=== PATIENT | male | born 1995 | race Caucasian/White ===

== ENCOUNTER 2023-06-14 01:53 | Emergency (ER) | payer OTHER, SELFPAY ==
[2023-06-14 01:57] VITALS: BP 173/106; PULSE 88; RESP 16; TEMP 36.9; O2SAT 97; BMI 34.4
--- NOTE | 2023-06-14 02:05 | PC.NURSE ---
Pt states he went to urgent care for an ingrown toenail, pain is now increasing and spreading.
[2023-06-14] MEDS: DOXYCYCLINE MONOHYDRATE 100 MG CAPSULE PO (02:21)
--- NOTE | 2023-06-14 03:40 | ED.GENADUL1 ---
HPI - General Adult General Chief complaint: Extremity Problem, Nontraumatic Stated complaint: LT PAIN TINGLE BIG TOE Time Seen by Provider: 06/14/23 01:59 Source: patient Mode of arrival: walk-in History of Present Illness HPI narrative: 20-year-old male to the emergency Department chief complaint of toe pain. Patient reports he has a known ingrown toenail. He was seen several days ago at an urgent care for this. He was started on Keflex at that time. He reports the redness warmth and swelling have worsened since that time. He reports increasing pain. He was not referred to podiatry at that visit. Related Data Home Medications Medication Instructions Recorded Confirmed cephalexin 500 mg capsule mg 06/14/23 mupirocin 2 % topical ointment topical 06/14/23 Previous Rx's Medication Instructions Recorded doxycycline monohydrate 100 mg 100 mg PO BID 7 days #14 caps 06/14/23 capsule Allergies Allergy/AdvReac Type Severity Reaction Status Date / Time No Known Drug Allergies Allergy Verified 06/14/23 02:01 Review of Systems ROS Status of ROS 10 or more systems reviewed and unremarkable except as noted in history and below PFSH [facility] Social History Smoking status: Never smoker Exam Narrative Exam Narrative: Left Foot Exam: DP and PT pulses are intact. Limited similar color and temperature the contralateral extremity. Sensation is intact over the foot. There is some erythema about the lateral nail fold extending up to the 1st MTP. There is some lymphangitic streaking. Compartments are soft. There is no crepitus. Constitutional Vital Signs, click to edit/add: Last Vital Signs Temp 98.4 F 06/14/23 01:57 Pulse 88 06/14/23 01:57 Resp 16 06/14/23 01:57 BP 173/106 H 06/14/23 01:57 Pulse Ox 97 06/14/23 01:57 Course Vital Signs Vital signs: Vital Signs Temperature 98.4 F 06/14/23 01:57 Pulse Rate 88 06/14/23 01:57 Respiratory Rate 16 06/14/23 01:57 Blood Pressure 173/106 H 06/14/23 01:57 Pulse Oximetry 97 06/14/23 01:57 Temperature 98.4 F 06/14/23 01:57 Pulse Rate 88 06/14/23 01:57 Respiratory Rate 16 06/14/23 01:57 Blood Pressure 173/106 H 06/14/23 01:57 Pulse Oximetry 97 06/14/23 01:57 Medical Decision Making MDM Narrative Medical decision making narrative: 28-year-old male with ingrown toenail with some surrounding cellulitis that he reports has worsened despite being on antibiotics. Vital stable, patient is afebrile. The limb is neurovascularly intact. No evidence of necrotizing soft tissue infection. We'll broaden his coverage including MRSA with doxycycline. He is given a podiatry referral. Return precautions were discussed. All questions were answered. The patient was discharged home. Discharge Plan Discharge Chief Complaint: Extremity Problem, Nontraumatic Clinical Impression: Ingrown left big toenail Patient Disposition: Home, Self-Care Time of Disposition Decision: 02:10 Condition: Good Mode of Transportation: Private Vehicle Prescriptions / Home Meds: New doxycycline monohydrate 100 mg capsule 100 mg PO BID 7 Days Qty: 14 0RF No Action cephalexin 500 mg capsule mupirocin 2 % ointment TOPICAL Print Language: Sami Instructions: Ingrown Nail (ED) Stand Alone Forms: Portal Instructions Referrals: Physician,Non-Staff, [Primary Care Provider] - 1 week Fred Castanon DPM [Physician] - 1 week Discharge Date/Time: 06/14/23 02:26
== END 2023-06-14 02:26 | disposition home or self-care (01) ==
PROVIDERS: Emergency Provider Student in an Organized Health Care Education/Training Program
DX: L60.0 Ingrowing nail (principal); L03.032 Cellulitis of left toe
CPT/HCPCS: 99283

== ENCOUNTER 2023-11-05 22:34 | Emergency (ER) | payer OTHER, SELFPAY ==
[2023-11-05 22:40] VITALS: BP 170/88; PULSE 76; TEMP 37; O2SAT 98; BMI 34.2
--- OUTSIDE RECORDS SUMMARY | 2023-11-05 22:42 | XMS_ITS ---
Patient Summarization (C-CDA 2.1 CCD) Created on: November 05, 2023 HODAN ALEX Clarissa : 1995 Sex: Male Author Organization Sample organization Care Team Providers Care Canvas Marker Name Role Phone REQUEST, DR NONE LISTED Primary Care Unavailjose BUSTILLOS, DR MONTANA Admitting Unavailable TRESSA, DR MONTANA Attending Unavailable JANETC, DR ADRIAN Primary Care Unavailable ARNIE, NOREEN Admitting Unavailable ARNIE, NOREEN Attending Unavailable ARNIE, NOREEN Consulting Unavailable EMIR, KARLO Consulting Unavailable MAISHA, NONE LISTED Primary Care Unavailjose MOHR, DR JEANNE Munguia Admitting Unavailable FANI, DR JEANNE Munguia Attending Unavailable JACKIE ALY Consulting Unavailable Cindy, Vince Consulting Unavailable FANI, DR JEANNE Munguia Admitting Unavailable FANI, DR JEANNE Munguia Attending Unavailable RONALD, DR ADRIAN Primary Care Unavailable FANI, DR JEANNE Munguia Consulting Unavailable TRESSA, DR MONTANA Admitting Unavailable TRESSA, DR MONTANA Attending Unavailable MAISHA, NONE LISTED Primary Care Unavailjose BUSTILLOS, DR MONTANA Consulting Unavailable Marce Callahan Encounters Encounter Date Encounter Type Care Provider Facility Start: 06-11-2023 End: 06-11-2023 ambulatory Marce Callahan Other [facility] [employer] Other Start: 06-11-2023 Office outpatient ne w 20 minutes Marce Callahan [facility] Start: 06-19-2021 End: 06-19-2021 ambulatory NONE LISTED REQUEST Facility: Start: 06-01-2021 ambulatory NONE LISTED REQUEST Facility: Start: 05-25-2021 End: 05-25-[address] RUBÉN BUSTILLOS Facility:[facility] Start: 02-18-2021 End: 02-18-[address] DOCTOR CARDENAS Facility:[facility] Start: 02-15-2021 End: 02-15-[address] JEANNE MOHR Facility: Medications Current Medications Medication Drug Class(es) Dates Sig (Normalized) Sig (Original) cephalexin 500 mg oral capsule (1 source) Cephalosporin Antibacterial Start: 06-11-2023 take 1 capsule by mouth every eight hours Cephalexin 500 MG 1 capsule Orally every 8 hrs for 7 May, Active mupirocin 0.02 mg/mg topical ointment (1 source) RNA Synthetase Inhibitor Antibacterial Start: 06-11-2023 Mupirocin 2 % 1 application Externally Three times a day for 7 days May, Active Payers Date Payer Category Payer Unknown [id number] 2.16.84 [id number] 1995 Unknown [id number] 2.16.84 [id number] 1995 Unknown [id number] 2.16.84 [id number] 1995 Unknown [id number] 2.16.84 [id number] 1995 Unknown [id number] 2.16.84 [id number] 1959 Unknown [id number] Problems Active Problems Problem Classification Problem Date Documented Da te Episodic/Chronic Abdominal pain (4 sources) Epigastric pain; Translations: [EPIGASTRIC PAIN] Onset: 06-19-2021 Episodic Skin and subcutaneous tissue infections (1 source) Cellulitis of unspecified toe Episodic Unclassified (3 sources) CONTACT W/AND (SUSP) EXPOS COVID-19; Translations: [CONTACT W/AND (SUSP) EXPOS COVID-19] Onset: 05-29-2021 Past or Other Problems Problem Classification Problem Date Documented Da te Episodic/Chronic Allergic reactions (1 source) Unspecified contact dermatitis due to other agents; Translations: [UNS CONTACT DERMATITIS OTH AGENTS] Onset: 02-16-2021 Episodic Genitourinary symptoms and ill-defined conditions (4 sources) Dysuria; Translations: [DYSURIA] Onset: 02-15-2021 Episodic Other male genital disorders (4 sources) Left testicular pain; Translations: [LEFT TESTICULAR PAIN] Onset: 02-18-2021 Episodic Other male genital disorders (1 source) Right testicular pain; Translations: [RIGHT TESTICULAR PAIN] Onset: 02-20-2021 Episodic Unclassified (1 source) CONTACT W/AND (SUSP) EXPOS COVID-19; Translations: [CONTACT W/AND (SUSP) EXPOS COVID-19] Onset: 05-25-2021 Results Test Name Value Interpretation Reference Range Facil ity AMYLASEon 06-19-2021 Amylase [Catalytic activity/Vol] 38 U/L Normal 31-110 [facility] Comment on above: Performed By: #### C MP, LIPA, LONDON #### [facility] [address] [place] [address] Dr. Arnie Alvarez CBC AUTO DIFFon 06-19-2021 BASO # 0.0 103/ul Normal 0.0-0.1 [facility] Comment on above: Performed By: #### C BC #### [facility] [address] [place] [address] Dr. Arnie Alvarez Basophils/100 WBC (Bld) 0.3 % Normal 0.2-2.0 Comment on above: Performed By: #### C BC #### [facility] [address] [place] [address] Dr. Arnie Alvarez EO # 0.0 103/ul Normal 0.0-0.7 [facility] Comment on above: Performed By: #### C BC #### [facility] [address] [place] [address] Dr. Arnie Alvarez Eosinophils/100 WBC (Bld) 0.3 % Critically low 0.9-7.0 [facility] Comment on above: Performed By: #### C BC #### [facility] [address] [place] [address] Dr. Arnie Alvarez Erythrocyte distribution width (RBC) [Ratio] 11.9 % Normal 11.0-15.0 [facility] Comment on above: Performed By: #### C BC #### [facility] [address] [place] [address] Dr. Arnie Alvarez Hematocrit (Bld) [Volume fraction] 45.0 % Normal 42.0-54.0 Comment on above: Performed By: #### C BC #### [facility] [address] [place] [address] Dr. Arnie Alvarez Hemoglobin (Bld) [Mass/Vol] 15.4 g/dL Normal 14.0-18.0 Comment on above: Performed By: #### C BC #### [facility] [address] [place] [address] Dr. Arnie Alvarez IG # 0.02 10e3/ul Normal 0.00-0.03 Comment on above: Performed By: #### C BC #### [facility] [address] [place] [address] Dr. Arnie Alvarez IG % 0.3 % Normal 0.0-0.5 Comment on above: Performed By: #### C BC #### [facility] [address] [place] [address] Dr. Arnie Alvarez LYMPH # 1.2 103/ul Normal 1.2-3.8 [facility] Comment on above: Performed By: #### C BC #### [facility] [address] [place] [address] Dr. Arnie Alvarez Lymphocytes/100 WBC (Bld) 16.4 % Critically low 20.5-60.0 Comment on above: Performed By: #### C BC #### [facility] [address] [place] [address] Dr. Arnie Alvarez MANUAL DIFF REQ NO Normal [facility] Comment on above: Performed By: #### C BC #### [facility] [address] [place] [address] Dr. Arnie Alvarez MCH (RBC) [Entitic mass] 28.4 pg Normal 25.9-34.0 [facility] Comment on above: Performed By: #### C BC #### [facility] [address] [place] [address] Dr. Arnie Alvarez MCHC (RBC) [Mass/Vol] 34.2 g/dL Normal 29.9-35.2 [facility] Comment on above: Performed By: #### C BC #### [facility] [address] [place] [address] Dr. Arnie Alvarez MCV (RBC) [Entitic vol] 83.0 fL Normal 80.0-94.0 [facility] Comment on above: Performed By: #### C BC #### [facility] [address] [place] [address] Dr. Arnie Alvarez MONO # 0.4 103/ul Normal 0.3-0.8 [facility] Comment on above: Performed By: #### C BC #### [facility] [address] [place] [address] Dr. Arnie Alvarez Monocytes/100 WBC (Bld) 5.9 % Normal 1.7-12.0 [facility] Comment on above: Performed By: #### C BC #### [facility] [address] [place] [address] Dr. Arnie Alvarez NEUT # 5.4 103/ul Normal 1.4-6.5 [facility] Comment on above: Performed By: #### C BC #### [facility] [address] [place] [address] Dr. Arnie Alvarez Neutrophils/100 WBC (Bld) 76.8 % Critically high 43.0-75.0 Comment on above: Performed By: #### C BC #### [facility] [address] [place] [address] Dr. Arnie Alvarez Platelet mean volume (Bld) [Entitic vol] 10.0 fL Normal 9.5-13.5 [facility] Comment on above: Performed By: #### C BC #### [facility] [address] [place] [address] Dr. Arnie Alavrez PLT 319 103/ul Normal 150-450 [facility] Comment on above: Performed By: #### C BC #### [facility] [address] [place] [address] Dr. Arnie Alvarez RBC 5.42 106/ul Normal 4.70-6.10 [facility] Comment on above: Performed By: #### C BC #### [facility] [address] [place] [address] Dr. Arnie Alvarez WBC 7.0 103/ul Normal 4.0-11.0 [facility] Comment on above: Performed By: #### C BC #### [facility] [address] [place], [place] [address] ABD/PELV W CONon 06-19-[address] ABD/PELV W CON EXAMINATION: CT ABD/PELV W CON HISTORY: UNSPECIFIED ABDOMINAL PAIN COMPARISON: None. TECHNIQUE: CT of the abdomen/pelvis with IV contrast. Additional delayed imaging of the pelvis. Dose reduction techniques were achieved by using automated exposure control and/or adjustment of mA and/or kV according to patient size and/or use of iterative reconstruction technique. FINDINGS: Philosophy Specialist: No pertinent findings, which are not already discussed below. Tubes/lines/drains: None. CHEST: Lungs: Clear. Cardiac and vascular: No cardiomegaly or significant pericardial effusion. ABDOMEN: Liver: Unremarkable. Gallbladder and Biliary Tree: Unremarkable. Spleen: Unremarkable. Pancreas: Unremarkable. Adrenal Glands: Unremarkable. Kidneys, Ureters, Bladder: No concerning renal lesions or masses. No urolithiasis. No hydronephrosis or hydroureterosis. Unremarkable bladder. Gastrointestinal: No mural thickening or inflammatory changes. No dilated loops of small or large bowel. Normal appendix. Reproductive organ(s): Unremarkable. Lymphatic: No concerning retroperitoneal, mesenteric, or inguinal adenopathy. Vessels: Unremarkable. BONES AND SOFT TISSUE: Bones: No acute fracture. No concerning osseous lesions. Soft Tissue: Within normal limits. IMPRESSION: No acute intra-abdominal/pelvi c findings. Electronically authenticated by: VINCE BOWLING Date: 2021-06-19 20:31 Normal [facility] LIPASEon 06-19-2021 Lipase [Catalytic activity/Vol] 98.0 U/L Normal 23.0-300.0 Comment on above: Performed By: #### C MP LIPA, LONDON #### [facility] [address] [place] [address] [address] [address] Arnie Alvarez PROF 14(COMP METB)on 022 Albumin [Mass/Vol] 4.4 g/dL Normal 3.5-5.0 [facility] Comment on above: Performed By: #### C MP LIPA, L[place]ON #### [facility] [address] [place] [address] Dr. Arnie Alvarez Albumin/Globulin [Mass ratio] 1.1 {ratio} Normal Comment on above: Performed By: #### C ELIZABETH LAN, L[place] #### [facility] [address] [place] [address] Dr. Arnie Alvarez ALP [Catalytic activity/Vol] 68 U/L Normal 38-126 Comment on above: Performed By: #### C LEONARDA LANA, L[place] #### [facility] [address] [place] [address] Dr. Arnie Alvarez ALT [Catalytic activity/Vol] 32 U/L Normal 21-72 Comment on above: Performed By: #### C ELIZABETH LAN, L[place]ON #### [facility] [address] [place] [address] Dr. Arnie Alvarez Anion gap [Moles/Vol] 10.9 mmol/L Normal Comment on above: Performed By: #### C LEONARDA LANA, L[place] #### [facility] [address] [place] [address] Dr. Arnie Alvarez AST [Catalytic activity/Vol] 16 U/L Critically low 17-59 Comment on above: Performed By: #### C ELIZABETH LAN, L[place]ON #### [facility] [address] [place] [address] Dr. Arnie Alvarez Bilirubin [Mass/Vol] 1.4 mg/dL Critically high 0.2-1.3 Comment on above: Performed By: #### C LEONARDA LANA, L[place] #### [facility] [address] [place] [address] Dr. Arnie Alvarez Calcium [Mass/Vol] 9.6 mg/dL Normal 8.4-10.2 [facility] Comment on above: Performed By: #### C LEONARDA LANA, LONDON #### [facility] [address] [place] [address] Dr. Arnie Alvarez Chloride [Moles/Vol] 101 mmol/L Normal 98-107 [facility] Comment on above: Performed By: #### C LEONARDA LANA, LONDON #### [facility] [address] [place] [address] [address] rAnie Alvarez CO2 [Moles/Vol] 26.6 mmol/L Normal 22.0-30.0 [facility] Comment on above: Performed By: #### C MP, LIPA, LONDON #### [facility] [address] [place] [address] [address] Arnie Alvarez Creatinine [Mass/Vol] 0.93 mg/dL Normal 0.66-1.25 Comment on above: Performed By: #### C MP, LIPA, LONDON #### [facility] [address] [place] [address] [address] Arnie Alvarez EGFR-AF ALGERIAN >60 Normal >=60 [facility] Comment on above: Performed By: #### C MP, LIPA, LONDON #### [facility] [address] [place] [address] [address] Arnie Alvarez EGFR-NON AF ALGERIAN >60 Normal >=60 Comment on above: Performed By: #### C MP, LIPA, LONDON #### [facility] [address] [place] [address] [address] Arnie Alvarez Globulin (S) [Mass/Vol] 4.0 g/dL Normal Comment on above: Performed By: #### C MP, LIPA, LONDON #### [facility] [address] [place] [address] [address] Arnie Alvarez Glucose [Mass/Vol] 110 mg/dL Critically high 74-106 [facility] Comment on above: Performed By: #### C MP, LIPA, LONDON #### [facility] [address] [address] [address] Arnie Alvarez Potassium [Moles/Vol] 3.5 mmol/L Normal 3.4-5.0 Comment on above: Performed By: #### C MP, LIPA, LONDON #### [facility] [address] [address] [address] Arnie Alvarez Protein [Mass/Vol] 8.4 g/dL Critically high 6.1-8.2 [facility] Comment on above: Performed By: #### C ELIZABETH LAN, LONDON #### [facility] [address] [address] [address] Arnie Alvarez Sodium [Moles/Vol] 135 mmol/L Critically low 137-145 [facility] Comment on above: Performed By: #### C ELIZABETH LAN, LONDNO #### [facility] [address] [place] [address] Dr. Arnie Alvarez Urea nitrogen [Mass/Vol] 11.0 mg/dL Normal 9.0-20.0 Comment on above: Performed By: #### C ELIZABETH LAN, L[place]ON #### [facility] [address] [place] [address] Dr. Arnie Alvarez Urea nitrogen/Creatinine [Mass ratio] 11.8 mg/mg Normal Comment on above: Performed By: #### C ELIZABETH LAN, LONDON #### [facility] [address] [place] [address] Dr. Arnie Alvarez Covid-19 PCR ([facility]on SARS-CoV-2 (COVID-19) RNA VICENTA+probe Ql (Unsp spec) Not detected Normal NOT DETECTED Comment on above: Result Comment: This test is not yet approved or cleared by the [place] FDA. When there are no FDA-approved or cleared tests available, and other criteria are met, FDA can make tests available under an emergency access mechanism called an Emergency Use Authorization (EUA). The EUA for this test is supported by the Diana of Health and Human Service's (HHS's) declaration that circumstances exist to justify the emergency use of in vitro diagnostics for the detection and/or diagnosis of the virus that causes COVID-19. This EUA will remain in effect (meaning this test can be used) for the duration of the COVID-19 declaration justifying emergency of IVDs, unless it is terminated or revoked by FDA (after which the test may no longer be used). When diagnostic testing is negative, the possibility of a false negative should be considered in the context of a patient's recent exposures and the presence of clinical signs and symptoms consistent with SARS-CoV-2. Performed By: #### C VDTBH ####[facility] [id number], [place] [address]ZlDr. Arnie Alvarez CBC AUTO DIFFon 02-18-2021 BASO # 0.0 103/ul Normal 0.0-0.1 Comment on above: Performed By: #### C BC #### [facility] [address] [address] [address] Arnie Alvarez Basophils/100 WBC (Bld) 0.4 % Normal 0.2-2.0 Comment on above: Performed By: #### C BC #### [facility] [address] [place] [address] [address] Arnie Alvarez EO # 0.1 103/ul Normal 0.0-0.7 Comment on above: Performed By: #### C BC #### [facility] [address] [address] [address] Arnie Alvarez Eosinophils/100 WBC (Bld) 0.7 % Critically low 0.9-7.0 Comment on above: Performed By: #### C BC #### [facility] [address] [address] [address] Arnie Alvarez Erythrocyte distribution width (RBC) [Ratio] 11.9 % Normal 11.0-15.0 Comment on above: Performed By: #### C BC #### [facility] [address] [address] [address] Arnie Alvarez Hematocrit (Bld) [Volume fraction] 44.2 % Normal 42.0-54.0 Comment on above: Performed By: #### C BC #### [facility] [address] [address] [address] Arnie Alvarez Hemoglobin (Bld) [Mass/Vol] 15.1 g/dL Normal 14.0-18.0 Comment on above: Performed By: #### C BC #### [facility] [address] [place] [address] [address] Arnie Alvarez IG # 0.02 10e3/ul Normal 0.00-0.03 Comment on above: Performed By: #### C BC #### [facility] [address] [place] [address] Dr. Arnie Alvarez IG % 0.2 % Normal 0.0-0.5 Comment on above: Performed By: #### C BC #### [facility] [address] [place] [address] Dr. Arnie Alvarez LYMPH # 1.6 103/ul Normal 1.2-3.8 Comment on above: Performed By: #### C BC #### [facility] [address] [place] [address] Dr. Arnie Alvarez Lymphocytes/100 WBC (Bld) 18.5 % Critically low 20.5-60.0 Comment on above: Performed By: #### C BC #### [facility] [address] [place] [address] Dr. Arnie Alvarez MANUAL DIFF REQ NO Normal [facility] Comment on above: Performed By: #### C BC #### [facility] [address] [place] [address] Dr. Arnie Alvarez MCH (RBC) [Entitic mass] 28.4 pg Normal 25.9-34.0 Comment on above: Performed By: #### C BC #### [facility] [address] [place] [address] Dr. Arnie Alvarez MCHC (RBC) [Mass/Vol] 34.2 g/dL Normal 29.9-35.2 Comment on above: Performed By: #### C BC #### [facility] [address] [place] [address] Dr. Arnie Alvarez MCV (RBC) [Entitic vol] 83.2 fL Normal 80.0-94.0 Comment on above: Performed By: #### C BC #### [facility] [address] [place] [address] Dr. Arnie Alvarez MONO # 0.5 103/ul Normal 0.3-0.8 Comment on above: Performed By: #### C BC #### [facility] [address] [place] [address] Dr. Arnie Alvarez Monocytes/100 WBC (Bld) 6.2 % Normal 1.7-12.0 Comment on above: Performed By: #### C BC #### [facility] [address] [place] [address] Dr. Arnie Alvarez NEUT # 6.3 103/ul Normal 1.4-6.5 [facility] Comment on above: Performed By: #### C BC #### [facility] [address] [place] [address] Dr. Arnie Alvarez Neutrophils/100 WBC (Bld) 74.0 % Normal 43.0-75.0 Comment on above: Performed By: #### C BC #### [facility] [address] [place] [address] Dr. Arnie Alvarez Platelet mean volume (Bld) [Entitic vol] 10.2 fL Normal 9.5-13.5 [facility] Comment on above: Performed By: #### C BC #### [facility] [address] [place] [address] Dr. Arnie Alvarez PLT 302 103/ul Normal 150-450 [facility] Comment on above: Performed By: #### C BC #### [facility] [address] [place] [address] Dr. Arnie Alvarez RBC 5.31 106/ul Normal 4.70-6.10 [facility] Comment on above: Performed By: #### C BC #### [facility] [address] [place] [address] Dr. Arnie Alvarez WBC 8.5 103/ul Normal 4.0-11.0 [facility] Comment on above: Performed By: #### C BC #### [facility] [address] [place] [address] Dr. Arnie Alvarez CRPon 02-18-2021 CRP [Mass/Vol] mg/L Normal <=1.[address] [facility] Comment on above: Performed By: #### B MP, CRP ####[facility] [id number] [place] [address]Dr. Arnie HENDRICKS URINE PROFILEon 1 Bilirubin Ql (U) Negative Normal NEGATIVE [facility] Comment on above: Performed By: #### Lyn MONTANEZ UMICRO #### [facility] [address] [address] [address] Arnie Alvarez Clarity (U) CLEAR Normal CLEAR Comment on above: Performed By: #### Lyn MONTANEZ UMICRO #### [facility] [address] [address] [address] Arnie Alvarez Color (U) YELLOW Normal YELLOW Comment on above: Performed By: #### YAJAIRA MARTINEZICRO #### [facility] [address] [place] [address] Dr. Arnie BASS A micrscopic examination will be performed if indicated. Normal Comment on above: Performed By: #### YAJAIRA MARTINEZICRO #### [facility] [address] [place] [address] Dr. Arnie Alvarez Glucose Ql (U) Negative Normal NEGATIVE [facility] Comment on above: Performed By: #### Lyn MONTANEZ UMICRO #### [facility] [address] [place] [address] Dr. Arnie Alvarez Hemoglobin Ql (U) TRACE-INTACT Abnormal NEGATIVE [facility] Comment on above: Performed By: #### Lyn MONTANEZ UMICRO #### [facility] [address] [address] [address] Arnie Alvarez Ketones Ql (U) TRACE Abnormal NEGATIVE [facility] Comment on above: Performed By: #### Lyn MONTANEZ UMICRO #### [facility] [address] [place] [address] Dr. Arnie Alvarez LEUKOCYTES Negative Normal NEGATIVE Comment on above: Performed By: #### Lyn MONTANEZ UMICRO #### [facility] [address] [place] [address] Dr. Arnie Alvarez Nitrite Ql (U) Negative Normal NEGATIVE [facility] Comment on above: Performed By: #### Lyn MONTANEZ, UMICRO #### [facility] [address] [place] [address] Dr. Arnie Alvarez pH (U) 6.0 [pH] Normal 5-9 Comment on above: Performed By: #### yLn MONTANEZ, UMICRO #### [facility] [address] [place] [address] Dr. Arnie Alvarez SPEC GRAVITY >=1.030 Abnormal 1.005-<=1.025 [facility] Comment on above: Performed By: #### Lyn MONTANEZ, UMICRO #### [facility] [address] [place] [address] Dr. Arnie Alvarez UA PROTEIN Negative Normal NEGATIVE/ TRACE [facility] Comment on above: Performed By: #### Lyn MONTANEZ UMICRO #### [facility] [address] [place] [address] Dr. rAnie Alvarez UR MICRO IND INDICATED Normal Comment on above: Performed By: #### Lyn MONTANEZ UMICRO #### [facility] [address] [place] [address] Dr. Arnie Alvarez Urobilinogen Qn (U) 0.2 {Dasha'U}/dL Normal 0.2 - 1. 0 Comment on above: Performed By: #### Lyn MONTANEZ, UMICRO #### [facility] [address] [place] [address] Dr. Arnie Alvarez PROF CHEM 8 (BAS METB)on Anion gap [Moles/Vol] 10.5 mmol/L Normal Comment on above: Performed By: #### B MP, CRP #### [facility] [address] [place] [address] Dr. Arnie Alvarez Calcium [Mass/Vol] 9.5 mg/dL Normal 8.4-10.2 [facility] Comment on above: Performed By: #### B MP, CRP #### [facility] [address] [place] [address] Dr. Arnie Alvarez Chloride [Moles/Vol] 102 mmol/L Normal 98-107 [facility] Comment on above: Performed By: #### B MP, CRP #### [facility] [address] [place] [address] Dr. Arnie Alvarez CO2 [Moles/Vol] 28.1 mmol/L Normal 22.0-30.0 [facility] Comment on above: Performed By: #### B MP, CRP #### [facility] [address] [address] [address] Arnie Alvarez Creatinine [Mass/Vol] 1.06 mg/dL Normal 0.66-1.25 [facility] Comment on above: Performed By: #### B MP, CRP #### [facility] [address] [place] [address] Dr. Arnie Alvarez EGFR-AF ALGERIAN >60 Normal >=60 [facility] Comment on above: Performed By: #### B MP, CRP #### [facility] [address] [place] [address] Dr. Arnie Alvarez EGFR-NON AF ALGERIAN >60 Normal >=60 Comment on above: Performed By: #### B MP, CRP #### [facility] [address] [place] [address] Dr. Arnie Alvarez Glucose [Mass/Vol] 105 mg/dL Normal 74-106 [facility] Comment on above: Performed By: #### B MP, CRP #### [facility] [address] [place] [address] Dr. Arnie Alvarez Potassium [Moles/Vol] 3.6 mmol/L Normal 3.4-5.0 [facility] Comment on above: Performed By: #### B MP, CRP #### [facility] [address] [place] [address] Dr. Arnie Alvarez Sodium [Moles/Vol] 137 mmol/L Normal 137-145 [facility] Comment on above: Performed By: #### B MP, CRP #### [facility] [address] [place] [address] Dr. Arnie Alvarez Urea nitrogen [Mass/Vol] 11.0 mg/dL Normal 9.0-20.0 Comment on above: Performed By: #### B MP, CRP #### [facility] [address] [place] [address] Dr. Arnie Alvarez Urea nitrogen/Creatinine [Mass ratio] 10.4 mg/mg Normal [facility] Comment on above: Performed By: #### B MP, CRP #### [facility] [address] [place] [address] Dr. Arnie Alvarez URINE MICROSCOPIC ONLYon BACTERIA TRACE Abnormal NONE SEEN Comment on above: Performed By: #### E RUR, UMICRO #### [facility] [address] [place] [address] Dr. Arnie Alvarez Bacteria identified Cx Nom (U) NOT INDICATED Normal Comment on above: Performed By: #### E RUR, UMICRO #### [facility] [address] [place] [address] Dr. Arnie Alvarez CAST SEEN Abnormal NONE SEEN Comment on above: Performed By: #### E RUR, UMICRO #### [facility] [address] [place] [address] Dr. Arnie Alvarez Crystals LM Nom (Urine sed) NONE SEEN Normal NONE SEEN Comment on above: Performed By: #### E RUR, UMICRO #### [facility] [address] [place] [address] Dr. Arnie Alvarez Epithelial cells LM Ql (Urine sed) FEW Abnormal NONE SEEN /RARE [facility] Comment on above: Performed By: #### E RUR, UMICRO #### [facility] [address] [place] [address] Dr. Arnie Alvarez HYALINE CAST RARE Normal [facility] Comment on above: Performed By: #### E RUR, UMICRO #### [facility] [address] [place] [address] Dr. Arnie Alvarez MUCOUS SMALL Abnormal NONE SEEN [facility] Comment on above: Performed By: #### E RUR, UMICRO #### [facility] [address] [address] [address] Arnie Alvarez RBC 2-5 Abnormal 0-2 Comment on above: Performed By: #### E KATIE MONTANEZ #### [facility] [address] [address] [address] Arnie Alvarez WBC NONE SEEN Normal NONE SEEN [facility] Comment on above: Performed By: #### E KATIE MONTANEZ #### [facility] [id number] Arnie Alvarez US SCROTUM W VASCULAR ORGANo n 02-18-2021 US SCROTUM W VASCULAR ORGAN EXAM: US SCROTUM W VASCULAR ORGAN HISTORY: Intermittent torsion of testis COMPARISON: None. TECHNIQUE: Esquivel-scale and color Doppler images as well as spectral analysis of the bilateral testes were obtained in the axial and longitudinal planes using real time ultrasound. FINDINGS: Right: The testicle is normal in size, shape, and echotexture. The testis measures 4.8 x 2.6 x 3.1 cm with normal Doppler flow. No masses are present. The epididymis also demonstrates normal echotexture. There is no hydrocele. Left: The testicle is normal in size, shape, and echotexture. The testis measures 4.6 x 2.2 x 2.7 cm with normal Doppler flow. No masses are present. The epididymis also demonstrates normal echotexture. There is no hydrocele. There is a possible left-sided varicocele. IMPRESSION: 1. Possible left-sided varicocele. Otherwise, unremarkable scrotal ultrasound examination. Electronically authenticated by: Tim FIELD Date: 2021-02-18 04:16 Normal [facility] ER URINE PROFILEon 1 Bilirubin Ql (U) Negative Normal NEGATIVE [facility] Comment on above: Performed By: #### E RUR ####[facility] [address] [address]Dr. Arnie Alvarez Clarity (U) CLEAR Normal CLEAR Comment on above: Performed By: #### E RUR ####[facility] [address] [id number]. Arnie Alvarez Color (U) LT. YELLOW Normal YELLOW Comment on above: Performed By: #### E RUR ####[facility] [address] [address]Dr. Catrachitadawn BASS A micrscopic examination will be performed if indicated. Normal [facility] Comment on above: Performed By: #### E RUR ####[facility] [address] [address]Dr. Arnie Alvarez Glucose Ql (U) Negative Normal NEGATIVE [facility] Comment on above: Performed By: #### E RUR ####[facility] [address] [address]Dr. Arnie Antonio Hemoglobin Ql (U) Negative Normal NEGATIVE [facility] Comment on above: Performed By: #### E RUR ####[facility] [address] [place], [place] [address]Dr. Catrachitadawn Antonio Ketones Ql (U) Negative Normal NEGATIVE [facility] Comment on above: Performed By: #### E RUR ####[facility] [address] [place], [place] [address]Dr. Arnie Alvarez LEUKOCYTES Negative Normal NEGATIVE Comment on above: Performed By: #### E RUR ####[facility] [address] [place], [place] [address]Dr. Arnie Alvarez Nitrite Ql (U) Negative Normal NEGATIVE [facility] Comment on above: Performed By: #### E RUR ####[facility] [address] [place], [place] [address]Dr. Arnie Antonio pH (U) 6.0 [pH] Normal 5-9 [facility] Comment on above: Performed By: #### E RUR ####[facility] [address] [place], [place] [address]Dr. Arnie Alvarez SPEC GRAVITY <=1.005 Abnormal 1.005-<=1.025 [facility] Comment on above: Performed By: #### E RUR ####[facility] [address] [place], [place] [address]Dr. Arnie Alvarez UA PROTEIN Negative Normal NEGATIVE/ TRACE [facility] Comment on above: Performed By: #### E RUR ####[facility] [address] [place], [place] [address]Im. Arnie Alvarez UR MICRO IND NOT INDICATED Normal [facility] Comment on above: Performed By: #### E RUR ####[facility] [address] [place], [place] [address]Jf. Arnie Alvarez Urobilinogen Qn (U) 0.2 {Dasha'U}/dL Normal 0.2 - 1. 0 [facility] Comment on above: Performed By: #### E RUR ####[facility] [address] [place], [place] [address]Qp. Arnie Alvarez Social History Date Type Detail Facility Sex Assigned At [facility] Other Vital Signs Date Time Vital Sign Value Performing Clinician Facility 06-11-2023 17:55-0500 Body height 185.42 cm Marce Callahan Other [facility] Other 06-11-2023 17:55-0500 Body mass index (BMI) [Ratio] 34.3 kg/m2 Marce Callahan Other [facility] Other 06-11-2023 17:55-0500 Body temperature 98 [degF] Marce Callahan Other [facility] Other 06-11-2023 17:55-0500 Body weight 117.94 kg Marce Callahan Other [facility] Other 06-11-2023 17:55-0500 Respiratory rate 16 /min Marce Callahan Other [facility] Other 06-11-2023 17:55-0500 SaO2% (BldA) [Mass fraction] 99 % aMrce Callahan Other [facility] Other Evaluation note 06-11-2023 Note Date & Type Note Facility 06-11-2023 Evaluation note Encounter Date Diagnosis Assessment Notes May, Paronychia of great toe (ICD-10 - L03.039) Discussed diagnosis with patient. No I&D performed today. Instructed patient to take medications as prescribed, take with food and full glass of water, complete entire course even if feeling better. Keep area clean and dry. Encouraged warm Epsom salt soaks of finger and warm compress. Keep skin and nail moisturized, use rx of mupirocin ointment as directed. May use Tylenol or Motrin as needed for discomfort. Follow up with PCP in 3-4 days. Immediate eval if area increases in swelling, redness, warmth, red streaking, purulent drainage, or any other new or concerning symptoms. Patient verbalizes understanding and is agreeable at this time [facility] Other Summary Purpose Family History No Family History Records Found Advance Directives No Advanced Directives Records Found Additional Source Comments (unrecognized sect ion and content) No Status Records Found INFORMATION SOURCE (unrecogn ized section and content) DATE CREATED AUTHOR 06/21/2021 [facility] REASON FOR VISIT (unrecogniz ed section and content) INFECTED LEFT BIG TOE FOR RECORDS PERTAINING TO PATIENTS WHO ARE OR HAVE BEEN ENROLLED IN A CHEMICAL DEPENDENCY/SUBSTANCEABUSE PROGRAM, SOME INFORMATION MAY BE OMITTED. This clinical summary was aggregated from multiple sources. Caution should be exercised in using it in the provision of clinical care. This summary normalizes information from multiple sources, and as a consequence, information in this document may materially change the coding, format and clinical context of patient data. In addition, data may be omitted in some cases. CLINICAL DECISIONS SHOULD BE BASED ON THE PRIMARY CLINICAL RECORDS. [facility]. provides no warranty or guarantee of the accuracy or completeness of information in this document.
[2023-11-05 22:44] VITALS: BP 157/96
--- NOTE | 2023-11-05 22:51 | ED_ITS ---
HPI - Extremity Problem General Chief complaint: Extremity Problem, Nontraumatic Stated complaint: Tingling/Numbness in Left Hand Time Seen by Provider: 11/05/23 22:49 Source: patient Mode of arrival: walk-in History of Present Illness HPI Narrative: presents complaining of tingling of his left 4th and 5th fingers for past couple of days. Describes working on a computer and always resting on his elbow. no weakness of his arm or injury otherwise. No neck pain. Related Data Home Medications ?Medication ?Instructions ?Recorded ?Confirmed No Known Home Medications 11/05/23 11/05/23 Allergies Allergy/AdvReac Type Severity Reaction Status Date / Time No Known Drug Allergies Allergy Verified 11/05/23 22:43 Review of Systems ROS Status of ROS 10 or more systems reviewed and unremark able except as noted in history and below [facility] Social History Smoking status: Never smoker Exam Constitutional Vital Signs, click to edit/add: Last Vital Signs Temp 98.6 F 11/05/23 22:40 Pulse 76 11/05/23 22:40 Resp 16 11/05/23 22:40 BP 157/96 H 11/05/23 22:44 Pulse Ox 98 11/05/23 22:40 O2 Del Method Room Air 11/05/23 22:40 Common normals: no apparent distress, average body habitus, oriented x3, no limitations, healthy appearing, alert and well nourished [facility] Common normals: normocephalic and head/scalp atraumatic Eye Common normals: PERRL, EOMs intact bilaterally and conjunctivae normal Respiratory Common normals: normal respiratory effort, no retractions, no use of accessory muscles and clear to auscultation bilaterally Cardio Common normals: regular rate, regular rhythm, S1 normal heart sound and S2 normal heart sound Extremity Common normals: normal to inspection and full ROM Neuro Common normals: oriented x3, CN's II-XII intact bilaterally, moves all extremities and no focal motor deficits Psych Appearance: grossly normal Course Vital Signs Vital signs: Vital Signs Temperature 98.6 F 11/05/23 22:40 Pulse Rate 76 11/05/23 22:40 Respiratory Rate 16 11/05/23 22:40 Blood Pressure 170/88 H 11/05/23 22:40 Pulse Oximetry 98 11/05/23 22:40 Oxygen Delivery Method Room Air 11/05/23 22:40 Temperature 98.6 F 11/05/23 22:40 Pulse Rate 76 11/05/23 22:40 Respiratory Rate 16 11/05/23 22:40 Blood Pressure 157/96 H 11/05/23 22:44 Pulse Oximetry 98 11/05/23 22:40 Oxygen Delivery Method Room Air 11/05/23 22:40 MDM - Extremity (Nontraumatic) MDM Narrative Medical decision making narrative: patient presents complaining of symptoms of left ulnar neuropathy for past couple of days. Describes often resting against his elbow while working on his computer. No injury. Normal neuro exam. 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
== END 2023-11-05 23:00 | disposition home or self-care (01) ==
PROVIDERS: Emergency Provider Internal Medicine
DX: G56.22 Lesion of ulnar nerve, left upper limb (principal)
CPT/HCPCS: 99284

== ENCOUNTER 2024-05-01 14:05 | Emergency (ER) | payer OTHER, SELFPAY ==
[2024-05-01 14:08] VITALS: BP 170/94; PULSE 92; TEMP 36.9; O2SAT 98; BMI 33.2
--- NOTE | 2024-05-01 14:16 | US_ITS ---
[address] [address] Patient Name: ALEX PETTIT MRN: [id number] date: 1995 Sex: M Assigned Patient Location: ER Current Patient Location: ER Accession/Order Number: [id number] Exam Date: 05/01/2024 14:59 Report Date: 05/01/2024 15:50 At the request of: ORIN DOBSON Procedure: US right upper quadrant EXAM: US right upper quadrant HISTORY: Abdominal pain COMPARISON: None. TECHNIQUE: Grayscale, color and Doppler FINDINGS: The liver is normal in size, contour and echotexture. No focal hepatic mass. Hepatopedal flow in the main portal vein with velocity of 19 cm/s. The pancreas is poorly visualized due to bowel gas The gallbladder is normal in size. The wall measures 2.5 mm. Negative sonographic Michele sign. Common bile duct measures 5.3 mm, normal. The right kidney is normal measuring 11.0 x 5.8 x 5.6 cm No ascites US/US right upper quadrant IMPRESSION: No acute abnormality Electronically authenticated by: SUSAN DE LA ROSA Date: 05/01/2024 15:50
--- NOTE | 2024-05-01 14:18 | ED.ABDPAIN1 ---
HPI - Abdominal Pain General Chief Complaint: Abdominal Pain Stated Complaint: ABDOMINAL PAIN Time Seen by Provider: 05/01/24 14:11 Source: patient Mode of arrival: walk-in History of Present Illness HPI narrative: Patient is a 29-year-old male who presents to the emergency department for evaluation of right upper quadrant abdominal pain that has been present for the last several days. He states last week he had a stomach bug . He states he had diarrhea, his girlfriend was also sick. He states after the diarrhea subsided he developed pain in the right upper quadrant. He states he feels it deep in the abdomen, he does not have pain with palpation. He has not had any persistent vomiting, diarrhea. He has not had any fevers, cough or congestion. No medications taken prior to arrival. He states he has been urinating without difficulty. He denies flank or back pain. He denies any previous abdominal surgeries. Related Data Previous Rx's ?Medication ?Instructions ?Recorded hyoscyamine sulfate 0.125 mg 0.125 mg PO Q6H PRN abdominal pain 05/01/24 tablet (Levsin) #12 tabs ondansetron 4 mg disintegrating 4 mg PO Q6H PRN nausea and 05/01/24 tablet vomiting #12 tabs pantoprazole 40 mg tablet,delayed 40 mg PO DAILY #7 tabs 05/01/24 release (Protonix) Allergies Allergy/AdvReac Type Severity Reaction Status Date / Time No Known Drug Allergies Allergy Verified 11/05/23 22:43 Review of Systems ROS Constitutional Denies: fever or chills Ears, nose, mouth, and throat Denies: throat pain or nasal congestion Cardiovascular Denies: chest pain Respiratory Denies: shortness of breath Gastrointestinal Reports: abdominal pain; Denies: nausea, vomiting or diarrhea Musculoskeletal Denies: back pain Integumentary/Breast Denies: rash Neurological Denies: numbness in extremities or weakness in extremities Hematologic/Lymphatic Denies: easy bruising or easy bleeding PFSH PFSH Social History Smoking status: Never smoker Little interest or pleasure in doing things: not at all Feeling down, depressed, or hopeless: not at all Exam Narrative Exam Narrative: Gen.: Awake, alert, in no distress Head: Normocephalic, atraumatic ENT: Moist mucous membranes Respiratory: No respiratory distress Gastrointestinal: Abdomen is soft, nondistended and nontender to palpation; no guarding or rebound Extremities: Moves extremities equally Psych: Normal mood and affect Neuro: No focal neuro deficit Skin: Warm, dry, intact Constitutional Vital Signs, click to edit/add: Last Vital Signs Temp 98.5 F 05/01/24 14:08 Pulse 92 H 05/01/24 14:08 Resp 18 05/01/24 14:08 BP 154/83 H 05/01/24 15:43 Pulse Ox 98 05/01/24 14:08 O2 Del Method Room Air 05/01/24 14:08 Course Vital Signs Vital signs: Vital Signs Temperature 98.5 F 05/01/24 14:08 Pulse Rate 92 H 05/01/24 14:08 Respiratory Rate 18 05/01/24 14:08 Blood Pressure 170/94 H 05/01/24 14:08 Pulse Oximetry 98 05/01/24 14:08 Oxygen Delivery Method Room Air 05/01/24 14:08 Temperature 98.5 F 05/01/24 14:08 Pulse Rate 92 H 05/01/24 14:08 Respiratory Rate 18 05/01/24 14:08 Blood Pressure 154/83 H 05/01/24 15:43 Pulse Oximetry 98 05/01/24 14:08 Oxygen Delivery Method Room Air 05/01/24 14:08 MDM - Abdominal Pain MDM Narrative Medical decision making narrative: Laboratory studies reviewed and noted within normal limits. GI cocktail given with improvement. Ultrasound of the right upper quadrant with no evidence of acute abnormality. Patient discharged home with Zofran, Protonix, Levsin. Follow-up PCP and return to the ER if symptoms change or worsen. Abdomen is soft and benign at discharge SUPERVISED APC VISIT, PHYSICIAN ATTESTATION: Based on the medical record the care appears appropriate. ? Medical Records Attestation: I reviewed the patient's medical records. Lab Data Attestation: I reviewed the patient's lab results. Labs: Lab Results 05/01/24 Range/Units 14:25 WBC 5.9 (4.0-11.0) 10^3/uL RBC 5.47 (4.70-6.10) 10^6/uL Hgb 15.9 (14.0-18.0) g/dL Hct 45.8 (42.0-54.0) % MCV 83.7 (80.0-94.0) fL MCH 29.1 (25.9-34.0) pg MCHC 34.7 (29.9-35.2) g/dL RDW 11.7 (11.0-15.0) % Plt Count 327 (150-450) 10^3/uL MPV 10.1 (9.5-13.5) fL Neut % (Auto) 55.1 (43.0-75.0) % Lymph % (Auto) 33.9 (20.5-60.0) % [place] % (Auto) 8.9 (1.7-12.0) % Eos % (Auto) 1.2 (0.9-7.0) % Baso % (Auto) 0.7 (0.2-2.0) % Neut # (Auto) 3.2 (1.4-6.5) 10^3/uL Lymph # (Auto) 2.0 (1.2-3.8) 10^3/uL [place] # (Auto) 0.5 (0.3-0.8) 10^3/uL Eos # (Auto) 0.1 (0.0-0.7) 10^3/uL Baso # (Auto) 0.0 (0.0-0.1) 10^3/uL Abs Immat Gran (auto) 0.01 (0.00-0.03) 10^3/uL Imm/Tot Granulo (auto) 0.2 (0.0-0.5) % Sodium 141 (136-145) mmol/L Potassium 3.6 (3.5-5.1) mmol/L Chloride 102 (98-107) mmol/L Carbon Dioxide 27.0 (21.0-32.0) mmol/L Anion Gap 15.6 BUN 10.0 (7.0-18.0) mg/dL Creatinine 1.06 (0.70-1.30) mg/dL Est GFR ( Amer) >60 (>=60 mL/min/1.73m^2) Est GFR (Non-Af Amer) >60 (>=60 mL/min/1.73m^2) BUN/Creatinine Ratio 9.4 Glucose 92 (74-106) mg/dL Lactate 1.4 (0.4-2.0) mmol/L Calcium 9.7 (8.5-10.1) mg/dL Total Bilirubin 1.8 H (0.2-1.0) mg/dL AST 20 (15-37) U/L ALT 37 (16-63) U/L Alkaline Phosphatase 71 (46-116) U/L Total Protein 7.9 (6.4-8.2) g/dL Albumin 4.1 (3.4-5.0) g/dL Globulin 3.8 g/dL Albumin/Globulin Ratio 1.1 Lipase 39.0 (16.0-77.0) U/L Urine Color Lt. yellow (YELLOW) Urine Clarity Clear (CLEAR) Urine pH 6.0 (5.0-9.0) Ur Specific [place] <=1.005 A (1.005-1.025) Urine Protein Negative (NEG/TRACE) mg/dL Urine Glucose (UA) Negative (NEGATIVE) mg/dL Urine Ketones Negative (NEGATIVE) mg/dL Urine Occult Blood Negative (NEGATIVE) Urine Nitrite Negative (NEGATIVE) Urine Bilirubin Negative (NEGATIVE) Urine Urobilinogen 0.2 (0.2-1.0) EU/dL Ur Leukocyte Esterase Negative (NEGATIVE) Imaging Data US - abdomen: Attestation: I have reviewed the pertinent imaging results. Radiologist's impression: ITS Impressions Upper Quadrant Ultrasound 05/01/24 14:16 IMPRESSION: No acute abnormality Electronically authenticated by: SUSAN DE LA ROSA Date: 05/01/2024 15:50 Discharge Plan Discharge Chief Complaint: Abdominal Pain Clinical Impression: Abdominal pain Patient Disposition: Home, Self-Care Time of Disposition Decision: 16:00 Condition: Good Prescriptions / Home Meds: New pantoprazole [Protonix] 40 mg tablet,delayed release (DR/EC) 40 mg PO DAILY Qty: 7 0RF hyoscyamine sulfate [Levsin] 0.125 mg tablet 0.125 mg PO Q6H PRN (Reason: abdominal pain) Qty: 12 0RF ondansetron 4 mg tablet,disintegrating 4 mg PO Q6H PRN (Reason: nausea and vomiting) Qty: 12 0RF Print Language: Vietnamese Instructions: Acute Abdominal Pain (ED) Referrals: Physician,Non-Staff, MD [Primary Care Provider] - 1 week
--- OUTSIDE RECORDS SUMMARY | 2024-05-01 14:33 | XMS_ITS | CCD ---
Author Organization [facility] Care Team Providers Care Travel Ticketing Reviewer Name Role Phone REQUEST, DR NONE LISTED Primary Care Unavailjose BUSTILLOS, DR MONTANA Admitting Unavailable TRESSA, DR MONTANA Attending Unavailable RONALD, DR ADRIAN Primary Care Unavailable ARNIE, NOREEN Admitting Unavailable ARNIE, NOREEN Attending Unavailable ARNIE, NOREEN Consulting Unavailable KARLO FIELD Consulting Unavailable REQUEST, NONE LISTED Primary Care Unavailjose MOHR, DR JEANNE Munguia Admitting Unavailable FANI, DR JEANNE Munguia Attending Unavailable JACKIE ALY Consulting Unavailable Vince White Consulting Unavailable FANI, DR JEANNE Munguia Admitting Unavailable FANI, DR JEANNE Munguia Attending Unavailable RONALD, DR ADRIAN Primary Care Unavailable FANI, DR JEANNE Munguia Consulting Unavailable TRESSA, DR MONTANA Admitting Unavailable TRESSA, DR MONTANA Attending Unavailable MAISHA, DR CAPELLAN LISTED Primary Care Unavailjose BUSTILLOS, DR MONTANA Consulting Unavailable Marce Callahan Unavailable Medications Current Medications Medication Drug Class(es) Dates [...] a day for 7 days May, Active Problems Active Problems Problem Classification Problem Date [...] activity/Vol] 38 U/L Normal 31-110 [facility] Comment on above: Performed By: #### C MP, LIPA, [place] #### [facility] [address] [place] [address] Dr. Arnie Alvarez CBC AUTO DIFFon 06-19-2021 BASO # 0.0 103/ul Normal 0.0-0.1 [facility] Comment on above: Performed By: #### C BC #### [facility] [address] [place] [address] Dr. Arnie Alvarez Basophils/100 WBC (Bld) 0.3 % Normal 0.2-2.0 [facility] Comment on above: Performed By: #### C BC #### [facility] [address] [place] [address] Dr. Arnie Alvarez EO # 0.0 103/ul Normal 0.0-0.7 [facility] Comment on above: Performed By: #### C BC #### [facility] [address] [place] [address] Dr. Arnie Alvarez Eosinophils/100 WBC (Bld) 0.3 % Critically low 0.9-7.0 [facility] Comment on above: Performed By: #### C BC #### [facility] [address] [place] [address] Dr. Arnie Alvarez Erythrocyte distribution width (RBC) [Ratio] 11.9 % Normal 11.0-15.0 [facility] Comment on above: Performed By: #### C BC #### [facility] [address] [place] [address] Dr. Arnie Alvarez Hematocrit (Bld) [Volume fraction] 45.0 % Normal 42.0-54.0 [facility] Comment on above: Performed By: #### C BC #### [facility] [address] [place] [address] Dr. Arnie Alvarez Hemoglobin (Bld) [Mass/Vol] 15.4 g/dL Normal 14.0-18.0 [facility] Comment on above: Performed By: #### C BC #### [facility] [address] [place] [address] Dr. Arnie Alvarez IG # 0.02 10e3/ul Normal 0.00-0.03 [facility] Comment on above: Performed By: #### C BC #### [facility] [address] [place] [address] Dr. Arnie Alvarez IG % 0.3 % Normal 0.0-0.5 [facility] Comment on above: Performed By: #### C BC #### [facility] [address] [place] [address] Dr. Arnie Alvarez LYMPH # 1.2 103/ul Normal 1.2-3.8 [facility] Comment on above: Performed By: #### C BC #### [facility] [address] [place] [address] Dr. Arnie Alvarez Lymphocytes/100 WBC (Bld) 16.4 % Critically low 20.5-60.0 [facility] Comment on above: Performed By: #### C BC #### [facility] [address] [place] [address] Dr. Arnie Alvarez MANUAL DIFF REQ NO Normal [facility] Comment on above: Performed By: #### C BC #### [facility] [address] [place] [address] Dr. Arnie Alvarez MCH (RBC) [Entitic mass] 28.4 pg Normal 25.9-34.0 [facility] Comment on above: Performed By: #### C BC #### [facility] [address] [place] [address] Dr. Arnie Alvarez MCHC (RBC) [Mass/Vol] 34.2 g/dL Normal 29.9-35.2 [facility] Comment on above: Performed By: #### C BC #### [facility] [address] [place] [address] Dr. Arnie Alvarez MCV (RBC) [Entitic vol] 83.0 fL Normal 80.0-94.0 [facility] Comment on above: Performed By: #### C BC #### [facility] [address] [place] [address] Dr. Arnie Alvarez MONO # 0.4 103/ul Normal 0.3-0.8 [facility] Comment on above: Performed By: #### C BC #### [facility] [address] [place] [address] Dr. Arnie Alvarez Monocytes/100 WBC (Bld) 5.9 % Normal 1.7-12.0 [facility] Comment on above: Performed By: #### C BC #### [facility] [address] [place] [address] Dr. Arnie Alvarez NEUT # 5.4 103/ul Normal 1.4-6.5 [facility] Comment on above: Performed By: #### C BC #### [facility] [address] [place] [address] Dr. Arnie Alvarez Neutrophils/100 WBC (Bld) 76.8 % Critically high 43.0-75.0 [facility] Comment on above: Performed By: #### C BC #### [facility] [address] [place] [address] Dr. Arnie Alvarez Platelet mean volume (Bld) [Entitic vol] 10.0 fL Normal 9.5-13.5 [facility] Comment on above: Performed By: #### C BC #### [facility] [address] [address] [address] Arnie Alvarez PLT 319 103/ul Normal 150-450 [facility] Comment on above: Performed By: #### C BC #### [facility] [address] [place] [address] Dr. Arnie Alvarez RBC 5.42 106/ul Normal 4.70-6.10 [facility] Comment on above: Performed By: #### C BC #### [facility] [address] [place] [address] Dr. Arnie Alvarez WBC 7.0 103/ul Normal 4.0-11.0 [facility] Comment on above: Performed By: #### C BC #### [facility] [address] [place] [address] ABD/PELV W CONon [...] and/or use of iterative reconstruction technique. FINDINGS: Computed Tomography Technician: No pertinent findings, which are not already [...] intra-abdominal/pelvi c findings. Electronically authenticated by: VINCE WHITE Date: 2021-06-19 20:31 Normal [facility] LIPASEon 06-19-2021 Lipase [Catalytic activity/Vol] 98.0 U/L Normal 23.0-300.0 [facility] Comment on above: Performed By: #### C LEONARDA LANA, [place] #### [facility] [address] [place] [address] Dr. Arnie Alvarez PROF 14(COMP METB)on 022 Albumin [Mass/Vol] 4.4 g/dL Normal 3.5-5.0 [facility] Comment on above: Performed By: #### C EDYTA LIPA, [place] #### [facility] [address] [place] [address] Dr. Arnie Alvarez Albumin/Globulin [Mass ratio] 1.1 {ratio} Normal [facility] Comment on above: Performed By: #### C EDYTA LIPA, [place] #### [facility] [address] [place] [address] Dr. Arnie Alvarez ALP [Catalytic activity/Vol] 68 U/L Normal 38-126 [facility] Comment on above: Performed By: #### C EDYTA LIPA, L[place] #### [facility] [address] [place] [address] Dr. Arnie Alvarez ALT [Catalytic activity/Vol] 32 U/L Normal 21-72 [facility] Comment on above: Performed By: #### C EDYTA LIPA, [place] #### [facility] [address] [place] [address] Dr. Arnie Alvarez Anion gap [Moles/Vol] 10.9 mmol/L Normal [facility] Comment on above: Performed By: #### C EDYTA LIPA, [place] #### [facility] [address] [place] [address] Dr. Arnie Alvarez AST [Catalytic activity/Vol] 16 U/L Critically low 17-59 [facility] Comment on above: Performed By: #### C EDYTA LIPA, L[place] #### [facility] [address] [place] [address] Dr. Arnie Alvarez Bilirubin [Mass/Vol] 1.4 mg/dL Critically high 0.2-1.3 [facility] Comment on above: Performed By: #### C LEONARDA LANA, [place] #### [facility] [address] [address] [address] Arnie Alvarez Calcium [Mass/Vol] 9.6 mg/dL Normal 8.4-10.2 [facility] Comment on above: Performed By: #### C MP, LIPA, LONDON #### [facility] [address] [address] [address] Arnie Alvarez Chloride [Moles/Vol] 101 mmol/L Normal 98-107 [facility] Comment on above: Performed By: #### C MP, LIPA, L[place] #### [facility] [address] [place] [address] Dr. Arnie Alvarez CO2 [Moles/Vol] 26.6 mmol/L Normal 22.0-30.0 [facility] Comment on above: Performed By: #### C MP, LIPA, L[place]ON #### [facility] [address] [place] [address] Dr. Arnie Alvarez Creatinine [Mass/Vol] 0.93 mg/dL Normal 0.66-1.25 [facility] Comment on above: Performed By: #### C MP LIPA, LONDON #### [facility] [address] [place] [address] Dr. Arnie Alvarez EGFR-AF GEORGIAN >60 Normal >=60 [facility] Comment on above: Performed By: #### C MP, LIPA, L[place] #### [facility] [address] [place] [address] Dr. Arnie Alvarez EGFR-NON AF GEORGIAN >60 Normal >=60 [facility] Comment on above: Performed By: #### C MP, LIPA, L[place] #### [facility] [address] [place] [address] Dr. Arnie Alvarez Globulin (S) [Mass/Vol] 4.0 g/dL Normal [facility] Comment on above: Performed By: #### C MP, LIPA, LONDON #### [facility] [address] [place] [address] Dr. Arnie Alvarez Glucose [Mass/Vol] 110 mg/dL Critically high 74-106 [facility] Comment on above: Performed By: #### C LEONARDA LANA, [place] #### [facility] [address] [place] [address] Dr. Arnie Alvarez Potassium [Moles/Vol] 3.5 mmol/L Normal 3.4-5.0 [facility] Comment on above: Performed By: #### C ELIZABETH LAN, [place] #### [facility] [address] [place] [address] Dr. Arnie Alvarez Protein [Mass/Vol] 8.4 g/dL Critically high 6.1-8.2 [facility] Comment on above: Performed By: #### C ELIZABETH LAN, [place] #### [facility] [address] [place] [address] Dr. Arnie Alvarez Sodium [Moles/Vol] 135 mmol/L Critically low 137-145 [facility] Comment on above: Performed By: #### C ELIZABETH LAN, [place] #### [facility] [address] [place] [address] Dr. Arnie Alvarez Urea nitrogen [Mass/Vol] 11.0 mg/dL Normal 9.0-20.0 [facility] Comment on above: Performed By: #### C ELIZABETH LAN, [place] #### [facility] [address] [place] [address] Dr. Arnie Alvarez Urea nitrogen/Creatinine [Mass ratio] 11.8 mg/mg Normal [facility] Comment on above: Performed By: #### C LEONARDA LANA, [place] #### [facility] [address] [place] [address] Dr. Arnie Alvarez Covid-19 PCR (CVDTB)on SARS-CoV-2 (COVID-19) RNA VICENTA+probe Ql (Unsp spec) Not detected Normal NOT DETECTED [facility] Comment on above: Result Comment: This test is not yet approved or cleared by the [place] FDA. When there are no FDA-approved or cleared tests available, and other criteria are met, FDA can make tests available under an emergency access mechanism called an Emergency Use Authorization (EUA). The EUA for this test is supported by the [employer] of Health and Human Service's (HHS's) declaration [...] consistent with SARS-CoV-2. Performed By: #### C VDTB ####[facility] [id number] [address]Dr. Arnie Alvarez CBC AUTO DIFFon 02-18-2021 BASO # 0.0 103/ul Normal 0.0-0.1 [facility] Comment on above: Performed By: #### C BC #### [facility] [address] [place] [address] Dr. Arnie Alvarez Basophils/100 WBC (Bld) 0.4 % Normal 0.2-2.0 [facility] Comment on above: Performed By: #### C BC #### [facility] [address] [place] [address] Dr. Arnie Alvarez EO # 0.1 103/ul Normal 0.0-0.7 [facility] Comment on above: Performed By: #### C BC #### [facility] [address] [place] [address] Dr. Arnie Alvarez Eosinophils/100 WBC (Bld) 0.7 % Critically low 0.9-7.0 [facility] Comment on above: Performed By: #### C BC #### [facility] [address] [place] [address] Dr. Arnie Alvarez Erythrocyte distribution width (RBC) [Ratio] 11.9 % Normal 11.0-15.0 [facility] Comment on above: Performed By: #### C BC #### [facility] [address] [place] [address] Dr. Arnie Alvarez Hematocrit (Bld) [Volume fraction] 44.2 % Normal 42.0-54.0 [facility] Comment on above: Performed By: #### C BC #### [facility] [address] [place] [address] Dr. Arnie Alvarez Hemoglobin (Bld) [Mass/Vol] 15.1 g/dL Normal 14.0-18.0 [facility] Comment on above: Performed By: #### C BC #### [facility] [address] [place] [address] Dr. Arnie Alvarez IG # 0.02 10e3/ul Normal 0.00-0.03 [facility] Comment on above: Performed By: #### C BC #### [facility] [address] [place] [address] Dr. Arnie Alvarez IG % 0.2 % Normal 0.0-0.5 [facility] Comment on above: Performed By: #### C BC #### [facility] [address] [place] [address] Dr. Arnie Alvarez LYMPH # 1.6 103/ul Normal 1.2-3.8 [facility] Comment on above: Performed By: #### C BC #### [facility] [address] [place] [address] Dr. Arnie Alvarez Lymphocytes/100 WBC (Bld) 18.5 % Critically low 20.5-60.0 [facility] Comment on above: Performed By: #### C BC #### [facility] [address] [place] [address] Dr. Arnie Alvarez MANUAL DIFF REQ NO Normal [facility] Comment on above: Performed By: #### C BC #### [facility] [address] [place] [address] Dr. Arnie Alvarez MCH (RBC) [Entitic mass] 28.4 pg Normal 25.9-34.0 [facility] Comment on above: Performed By: #### C BC #### [facility] [address] [place] [address] Dr. Arnie Alvarez MCHC (RBC) [Mass/Vol] 34.2 g/dL Normal 29.9-35.2 [facility] Comment on above: Performed By: #### C BC #### [facility] [address] [address] [address] Arnie Alvarez MCV (RBC) [Entitic vol] 83.2 fL Normal 80.0-94.0 [facility] Comment on above: Performed By: #### C BC #### [facility] [address] [address] [address] Arnie Alvarez MONO # 0.5 103/ul Normal 0.3-0.8 [facility] Comment on above: Performed By: #### C BC #### [facility] [address] [place] [address] Dr. Arnie Alvarez Monocytes/100 WBC (Bld) 6.2 % Normal 1.7-12.0 [facility] Comment on above: Performed By: #### C BC #### [facility] [address] [place] [address] Dr. Arnie Alvarez NEUT # 6.3 103/ul Normal 1.4-6.5 [facility] Comment on above: Performed By: #### C BC #### [facility] [address] [place] [address] Dr. Arnie Alvarez Neutrophils/100 WBC (Bld) 74.0 % Normal 43.0-75.0 [facility] Comment on above: Performed By: #### C BC #### [facility] [address] [place] [address] Dr. Arnie Alvarez Platelet mean volume (Bld) [Entitic vol] 10.2 fL Normal 9.5-13.5 [facility] Comment on above: Performed By: #### C BC #### [facility] [address] [place] [address] Dr. Arnie Alvarez PLT 302 103/ul Normal 150-450 [facility] Comment on above: Performed By: #### C BC #### [facility] [address] [place] [address] Dr. Arnie Alvarez RBC 5.31 106/ul Normal 4.70-6.10 [facility] Comment on above: Performed By: #### C BC #### [facility] [address] [address] [address] Arnie Alvarez WBC 8.5 103/ul Normal 4.0-11.0 [facility] Comment on above: Performed By: #### C BC #### [facility] [address] [address] [address] Arnie Alvarez CRPon 02-18-2021 CRP [Mass/Vol] mg/L Normal <=1.0 [facility] Comment on above: Performed By: #### B MP, CRP ####[facility] [id number] [id number]. Arnie Alvarez ER URINE PROFILEon Bilirubin Ql (U) Negative Normal NEGATIVE [facility] Comment on above: Performed By: #### Lyn MONTANEZ UMICRO #### [facility] [address] [place] [address] Dr. Arnie Alvarez Clarity (U) CLEAR Normal CLEAR [facility] Comment on above: Performed By: #### Lyn MONTANEZ UMICRO #### [facility] [address] [place] [address] Dr. Arnie Alvarez Color (U) YELLOW Normal YELLOW [facility] Comment on above: Performed By: #### Lyn MONTANEZ UMICRO #### [facility] [address] [place] [address] Dr. Arnie JUÁREZMarilee A micrscopic examination will be performed if indicated. Normal [facility] Comment on above: Performed By: #### Lyn MONTANEZ UMICRO #### [facility] [address] [place] [address] Dr. Arnie Alvarez Glucose Ql (U) Negative Normal NEGATIVE [facility] Comment on above: Performed By: #### Lyn MONTANEZ UMICRO #### [facility] [address] [place] [address] Dr. Arnie Alvarez Hemoglobin Ql (U) TRACE-INTACT Abnormal NEGATIVE [facility] Comment on above: Performed By: #### Lyn MONTANEZ UMICRO #### [facility] [address] [place] [address] Dr. Arnie Alvarez Ketones Ql (U) TRACE Abnormal NEGATIVE [facility] Comment on above: Performed By: #### YUSUF MARTINEZRO #### [facility] [address] [place] [address] Dr. Arnie Alvarez LEUKOCYTES Negative Normal NEGATIVE [facility] Comment on above: Performed By: #### YUSUF MARTINEZRO #### [facility] [address] [place] [address] Dr. Arnie Alvarez Nitrite Ql (U) Negative Normal NEGATIVE [facility] Comment on above: Performed By: #### YUSUF MARTINEZRO #### [facility] [address] [place] [address] Dr. Arnie Alvarez pH (U) 6.0 [pH] Normal 5-9 [facility] Comment on above: Performed By: #### YUSUF MARTINEZRO #### [facility] [address] [place] [address] Dr. Arnie Alvarez SPEC GRAVITY >=1.030 Abnormal 1.005-<=1.[address] [facility] Comment on above: Performed By: #### YUSUF MARTINEZRO #### [facility] [address] [place] [address] Dr. Arnie Alvarez UA PROTEIN Negative Normal NEGATIVE/ TRACE [facility] Comment on above: Performed By: #### YUSUF MARTINEZRO #### [facility] [address] [place] [address] Dr. Arnie Alvarez UR MICRO IND INDICATED Normal [facility] Comment on above: Performed By: #### YUSUF MARTINEZRO #### [facility] [address] [place] [address] Dr. Arnie Alvarez Urobilinogen Qn (U) 0.2 {Dasha'U}/dL Normal 0.2 - 1. 0 [facility] Comment on above: Performed By: #### YUSUF MARTINEZRO #### [facility] [address] [place] [address] Dr. Arnie Alvarez PROF CHEM 8 (BAS METB)on Anion gap [Moles/Vol] 10.5 mmol/L Normal [facility] Comment on above: Performed By: #### B MP, CRP #### [facility] [address] [place] [address] Dr. Arnie Alvarez Calcium [Mass/Vol] 9.5 mg/dL Normal 8.4-10.2 [facility] Comment on above: Performed By: #### B MP, CRP #### [facility] [address] [place] [address] Dr. Arnie Alvarez Chloride [Moles/Vol] 102 mmol/L Normal 98-107 [facility] Comment on above: Performed By: #### B MP, CRP #### [facility] [address] [place] [address] Dr. Arnie Alvarez CO2 [Moles/Vol] 28.1 mmol/L Normal 22.0-30.0 [facility] Comment on above: Performed By: #### B MP, CRP #### [facility] [address] [place] [address] Dr. Arnie Alvarez Creatinine [Mass/Vol] 1.06 mg/dL Normal 0.66-1.25 [facility] Comment on above: Performed By: #### B MP, CRP #### [facility] [address] [place] [address] Dr. Arnie Alvarez EGFR-AF GEORGIAN >60 Normal >=60 [facility] Comment on above: Performed By: #### B MP, CRP #### [facility] [address] [place] [address] Dr. Arnie Alvarez EGFR-NON AF GEORGIAN >60 Normal >=60 [facility] Comment on above: Performed By: #### B MP, CRP #### [facility] [address] [place] [address] Dr. Arnie Alvarez Glucose [Mass/Vol] 105 mg/dL Normal 74-106 [facility] Comment on above: Performed By: #### B MP, CRP #### [facility] [address] [place] [address] Dr. Arnie Alvarez Potassium [Moles/Vol] 3.6 mmol/L Normal 3.4-5.0 [facility] Comment on above: Performed By: #### B EDYTA, CRP #### [facility] [address] [address] [address] Arnie Alvarez Sodium [Moles/Vol] 137 mmol/L Normal 137-145 [facility] Comment on above: Performed By: #### B MP, CRP #### [facility] [address] [address] [address] Arnie Alvarez Urea nitrogen [Mass/Vol] 11.0 mg/dL Normal 9.0-20.0 [facility] Comment on above: Performed By: #### B EDYTA, CRP #### [facility] [address] [place] [address] Dr. Arnie Alvarez Urea nitrogen/Creatinine [Mass ratio] 10.4 mg/mg Normal [facility] Comment on above: Performed By: #### B EDYTA, CRP #### [facility] [address] [place] [address] Dr. Arnie Alvarez URINE MICROSCOPIC ONLYon BACTERIA TRACE Abnormal NONE SEEN [facility] Comment on above: Performed By: #### Lyn MONTANEZ UMICRO #### [facility] [address] [place] [address] Dr. Arnie Alvarez Bacteria identified Cx Nom (U) NOT INDICATED Normal [facility] Comment on above: Performed By: #### Lyn MONTANEZ UMICRO #### [facility] [address] [place] [address] Dr. Arnie Alvarez CAST SEEN Abnormal NONE SEEN [facility] Comment on above: Performed By: #### Lyn MONTANEZ UMICRO #### [facility] [address] [place] [address] Dr. Arnie Alvarez Crystals LM Nom (Urine sed) NONE SEEN Normal NONE SEEN [facility] Comment on above: Performed By: #### Lyn MONTANEZ UMICRO #### [facility] [address] [place] [address] Dr. Arnie Alvarez Epithelial cells LM Ql (Urine sed) FEW Abnormal NONE SEEN /RARE [facility] Comment on above: Performed By: #### E RUR, UMICRO #### [facility] [address] [address] [address] Arnie Alvarez HYALINE CAST RARE Normal [facility] Comment on above: Performed By: #### E RUR, UMICRO #### [facility] [address] [address] [address] Arnie Alvarez MUCOUS SMALL Abnormal NONE SEEN [facility] Comment on above: Performed By: #### E RUR, UMICRO #### [facility] [address] [address] [address] Arnie Alvarez RBC 2-5 Abnormal 0-2 [facility] Comment on above: Performed By: #### E RUR, UMICRO #### [facility] [address] [place] [address] Dr. Arnie Alvarez WBC NONE SEEN Normal NONE SEEN [facility] Comment on above: Performed By: #### E RUR, UMICRO #### [facility] [facility] [address] [place] [address] Dr. Arnie Alvarez US SCROTUM W VASCULAR [...] FIELD Date: 2021-02-18 04:16 Normal [facility] ER URINE PROFILEon 1 Bilirubin Ql (U) Negative Normal NEGATIVE The [facility] Comment on above: Performed By: #### E RUR ####[facility] [id number] [place], [place] [address]Dr. Arnie Alvarez Clarity (U) CLEAR Normal CLEAR [facility] Comment on above: Performed By: #### E RUR ####[facility] [address] [place], [place] [address]Dr. Arnie Alvarez Color (U) LT. YELLOW Normal YELLOW [facility] Comment on above: Performed By: #### E RUR ####[facility] [address] [place], [place] [address]Dr. Arnie Alvarez ERUAHD A micrscopic examination will be performed if indicated. Normal [facility] Comment on above: Performed By: #### E RUR ####[facility] Ofcwu[address]xvs[address] [place], [place] [address]Dr. Arine Alvarez Glucose Ql (U) Negative Normal NEGATIVE [facility] Comment on above: Performed By: #### E RUR ####[facility] [address] [place], [place] [address]Dr. Arnie Alvarez Hemoglobin Ql (U) Negative Normal NEGATIVE [facility] Comment on above: Performed By: #### E RUR ####[facility] [address]asx[address] [place], [place] [address]Dr. Arnie Alvarez Ketones Ql (U) Negative Normal NEGATIVE [facility] Comment on above: Performed By: #### E RUR ####[facility] [address]vs[address] [place], [place] [address]Dr. Arnie Alvarez LEUKOCYTES Negative Normal NEGATIVE [facility] Comment on above: Performed By: #### E RUR ####[facility] [address] [place], [place] [address]Dr. Arnie Alvarez Nitrite Ql (U) Negative Normal NEGATIVE [facility] Comment on above: Performed By: #### E RUR ####[facility] Jrsh[address]gvt[address] [place], [place] [address]Dr. Yilan Alvarez pH (U) 6.0 [pH] Normal 5-9 [facility] Comment on above: Performed By: #### E RUR ####[facility] [address] [place] [id number]. Arnie Alvarez SPEC GRAVITY <=1.005 Abnormal 1.005-<=1.025 [facility] Comment on above: Performed By: #### E RUR ####[facility] [address] [place] [address]Dr. Arnie Alvarez UA PROTEIN Negative Normal NEGATIVE/ TRACE [facility] Comment on above: Performed By: #### E RUR ####[facility] [address] [place], [place] [address]Dr. Arnie Alvarez UR MICRO IND NOT INDICATED Normal [facility] Comment on above: Performed By: #### E RUR ####[facility] [address] [place] [address]Dr. Arnie Alvarez Urobilinogen Qn (U) 0.2 {Dasha'U}/dL Normal 0.2 - 1. 0 [facility] Comment on above: Performed By: #### E RUR ####[facility] [address] [place], [place] [address]DrSmitha Alvarez Vital Signs Date Time Vital Sign Value Performing Clinician Facility 06-11-2023 17:55-0500 Body height 185.42 cm Marce Callahan Other [facility] Other 06-11-2023 17:55-0500 Body mass index (BMI) [Ratio] 34.3 kg/m2 Marce Callahan Other [facility] Other 06-11-2023 17:55-0500 Body temperature 98 [degF] Marce Callahan Other [facility] Other 06-11-2023 17:55-0500 Body weight 117.94 kg Marce Callahan Other [facility] Other 06-11-2023 17:55-0500 Respiratory rate 16 /min Marce Callahan Other [facility] Other 06-11-2023 17:55-0500 SaO2% (BldA) [Mass fraction] 99 % Marce Callahan Other [facility] Other Encounters Encounter Date Encounter Type Care Provider Facility Start: 06-11-2023 End: 06-11-2023 ambulatory Marce Callahan Other [facility] Other Start: 06-11-2023 Office outpatient ne w 20 minutes Marce Callahan [facility] Start: 06-19-2021 End: 06-19-2021 ambulatory NONE LISTED REQUEST Facility:[facility] Start: 06-01-2021 ambulatory NONE LISTED REQUEST Facility:[facility] Start: 05-25-2021 End: 05-25-[address] RUBÉN BUSTILLOS Facility:[facility] Start: 02-18-2021 End: 02-18-[address] DOCTOR CARDENAS Facility:[facility] Start: 02-15-2021 End: 02-15-[address] JEANNE MOHR Facility:[facility] Payers Date Payer Category Payer Unknown [id number] [id number] [id number] 1995 Unknown [id number] .[id number] [id number] 1995 Unknown [id number] .16.84 [id number] 1995 Unknown [id number] .16.84 [id number] 1995 Unknown [id number] .16.84 [id number] 1959 Unknown [id number] Social History Date Type Detail Facility Sex Assigned At [facility] Other Evaluation note 06-11-2023 Note Date & [...] understanding and is agreeable at this time [facility] Other Summary Purpose Family History No Family History Records Found Advance Directives No Advanced Directives Records Found Additional Source Comments (unrecognized sect ion and content) No Status Records Found INFORMATION SOURCE (unrecogn ized section and content) DATE CREATED AUTHOR 06/21/2021 [facility] REASON FOR VISIT (unrecogniz ed [...] BE BASED ON THE PRIMARY CLINICAL RECORDS. [employer] [facility]. provides no warranty or guarantee of the accuracy or completeness of information in this document.
[2024-05-01 14:36] LABS: Basophils Percent Auto 0.7 % (0.2-2.0); Eosinophils Absolute Auto 0.1 10^3/uL (0.0-0.7); Eosinophils Percent Auto 1.2 % (0.9-7.0); Hematocrit 45.8 % (42.0-54.0); Hemoglobin 15.9 g/dL (14.0-18.0); Immature Granulocytes Abs Auto 0.01 10^3/uL (0.00-0.03); Immature Granulocytes Pct Auto 0.2 % (0.0-0.5); Lymphocytes Percent Auto 33.9 % (20.5-60.0); Mean Corpuscular HGB Conc 34.7 g/dL (29.9-35.2); Mean Corpuscular Hemoglobin 29.1 pg (25.9-34.0); Mean Corpuscular Volume 83.7 fL (80.0-94.0); Mean Platelet Volume 10.1 fL (9.5-13.5); Monocytes Absolute Auto 0.5 10^3/uL (0.3-0.8); Monocytes Percent Auto 8.9 % (1.7-12.0); Neutrophils Absolute Auto 3.2 10^3/uL (1.4-6.5); Neutrophils Percent Auto 55.1 % (43.0-75.0); Platelet Count 327 10^3/uL (150-450); Red Blood Count 5.47 10^6/uL (4.70-6.10); Red Cell Distribution Width 11.7 % (11.0-15.0); White Blood Count 5.9 10^3/uL (4.0-11.0)
[2024-05-01 14:40] LABS: Bilirubin Urine NEGATIVE (NEGATIVE); Blood Urine NEGATIVE (NEGATIVE); Clarity Urine CLEAR (CLEAR); Color Urine LT. YELLOW (YELLOW); Glucose Urine UA NEGATIVE (NEGATIVE); Ketones Urine NEGATIVE (NEGATIVE); Leukocyte Esterase Urine NEGATIVE (NEGATIVE); Nitrite Urine NEGATIVE (NEGATIVE); Protein Urine NEGATIVE (NEG/TRACE); Specific Gravity Urine <=1.005 (1.005-1.025); Urobilinogen Urine 0.2 EU/dL (0.2-1.0)
[2024-05-01 14:44] LABS: Urine Microscopic Indicated NO
[2024-05-01] MEDS: PANTOPRAZOLE SODIUM 40 MG VIAL IV (14:45)
[2024-05-01] MEDS: lidocaine HCL 15 ML, MAG HYDROX/ALUMINUM HYD/SIMETH 30 ML, HYOSCYAMINE SULFATE 0.25 MG PO (14:45)
[2024-05-01 14:53] LABS: Alanine Aminotransferase 37 U/L (16-63); Albumin Globulin Ratio 1.1; Albumin Level 4.1 g/dL (3.4-5.0); Alkaline Phosphatase 71 U/L (46-116); Anion Gap 15.6; Aspartate Amino Transferase 20 U/L (15-37); BUN Creatinine Ratio 9.4; Bilirubin Total 1.8 mg/dL (0.2-1.0); Calcium 9.7 mg/dL (8.5-10.1); Chloride 102 mmol/L (98-107); Estimated GFR (African America >60 (>=60 mL/min/1.73m^2); Estimated GFR (Non-African Ame >60 (>=60 mL/min/1.73m^2); Globulin 3.8 g/dL; Glucose 92 mg/dL (74-106); Potassium 3.6 mmol/L (3.5-5.1); Sodium 141 mmol/L (136-145); Total Protein 7.9 g/dL (6.4-8.2)
[2024-05-01 14:55] LABS: Lactate/Lactic Acid 1.4 mmol/L (0.4-2.0)
[2024-05-01 15:43] VITALS: BP 154/83
== END 2024-05-01 16:05 | disposition home or self-care (01) ==
PROVIDERS: Physician Assistant; Emergency Provider Emergency Medicine
DX: R10.11 Right upper quadrant pain (principal)
CPT/HCPCS: 36415; 76705; 80053; 81003; 83605; 83690; 85025; 96374; 99285

== ENCOUNTER 2024-09-07 01:37 | Emergency (ER) | payer OTHER, SELFPAY ==
[2024-09-07 01:40] VITALS: BP 155/98; PULSE 88; TEMP 36.9; O2SAT 99; BMI 33.2
--- OUTSIDE RECORDS SUMMARY | 2024-09-07 01:43 | XMS_ITS | CCD ---
Author Organization [facility] Care Team Providers Care Courier Delivery Driver Name Role Phone REQUEST, DR NONE LISTED [...] [Catalytic activity/Vol] 38 U/L Normal 31-110 [facility] Comment on above: Performed By: #### C MP, LIPA, [place] #### [facility] [address] [place] [address] Dr. Arnie Alvarez CBC AUTO DIFFon 06-19-2021 BASO # 0.0 103/ul Normal 0.0-0.1 [facility] Comment on above: Performed By: #### C BC #### [facility] [address] [place] [address] Dr. Arnie Alvarez Basophils/100 WBC (Bld) 0.3 % Normal 0.2-2.0 [facility] Comment on above: Performed By: #### C BC #### [facility] [address] [place] [address] Dr. Arnie Alvarez EO # 0.0 103/ul Normal 0.0-0.7 [facility] Comment on above: Performed By: #### C BC #### [facility] [address] [place] [address] Dr. Arnie Alvarez Eosinophils/100 WBC (Bld) 0.3 % Critically low 0.9-7.0 [facility] Comment on above: Performed By: #### C BC #### [facility] [address] [place] [address] Dr. Arnie Alvarez Erythrocyte distribution width (RBC) [Ratio] 11.9 % Normal 11.0-15.0 [facility] Comment on above: Performed By: #### C BC #### [facility] [address] [place] [address] Dr. Arnie Alvarez Hematocrit (Bld) [Volume fraction] 45.0 % Normal 42.0-54.0 [facility] Comment on above: Performed By: #### C BC #### [facility] [address] [place] [address] Dr. Arnie Alvarez Hemoglobin (Bld) [Mass/Vol] 15.4 g/dL Normal 14.0-18.0 [facility] Comment on above: Performed By: #### C BC #### [facility] [address] [place] [address] Dr. Arnie Alvarez IG # 0.02 10e3/ul Normal 0.00-0.03 [facility] Comment on above: Performed By: #### C BC #### [facility] [address] [place] [address] Dr. Arnie Alvarez IG % 0.3 % Normal 0.0-0.5 [facility] Comment on above: Performed By: #### C BC #### [facility] [address] [place] [address] Dr. Arnie Alvarez LYMPH # 1.2 103/ul Normal 1.2-3.8 [facility] Comment on above: Performed By: #### C BC #### [facility] [address] [place] [address] Dr. Arnie Alvarez Lymphocytes/100 WBC (Bld) 16.4 % Critically low 20.5-60.0 [facility] Comment on above: Performed By: #### C BC #### [facility] [address] [place] [address] Dr. Arnie Alvarez MANUAL DIFF REQ NO Normal [facility] Comment on above: Performed By: #### C BC #### [facility] [address] [place] [address] Dr. Arnie Alvarez MCH (RBC) [Entitic mass] 28.4 pg Normal 25.9-34.0 [facility] Comment on above: Performed By: #### C BC #### [facility] [address] [place] [address] Dr. Arnie Alvarez MCHC (RBC) [Mass/Vol] 34.2 g/dL Normal 29.9-35.2 [facility] Comment on above: Performed By: #### C BC #### [facility] [address] [place] [address] Dr. Arnie Alvarez MCV (RBC) [Entitic vol] 83.0 fL Normal 80.0-94.0 [facility] Comment on above: Performed By: #### C BC #### [facility] [address] [place] [address] Dr. Arnie Alvarez MONO # 0.4 103/ul Normal 0.3-0.8 [facility] Comment on above: Performed By: #### C BC #### [facility] [address] [place] [address] Dr. Arnie Alvarez Monocytes/100 WBC (Bld) 5.9 % Normal 1.7-12.0 [facility] Comment on above: Performed By: #### C BC #### [facility] [address] [place] [address] Dr. Arnie Alvarez NEUT # 5.4 103/ul Normal 1.4-6.5 [facility] Comment on above: Performed By: #### C BC #### [facility] [address] [place] [address] Dr. Arnie Alvarez Neutrophils/100 WBC (Bld) 76.8 % Critically high 43.0-75.0 [facility] Comment on above: Performed By: #### C BC #### [facility] [address] [place] [address] Dr. Arnie Alvarez Platelet mean volume (Bld) [Entitic vol] 10.0 fL Normal 9.5-13.5 [facility] Comment on above: Performed By: #### C BC #### [facility] [address] [address] [address] Arnie Alvarez PLT 319 103/ul Normal 150-450 [facility] Comment on above: Performed By: #### C BC #### [facility] [address] [place] [address] Dr. Arnie Alvarez RBC 5.42 106/ul Normal 4.70-6.10 [facility] Comment on above: Performed By: #### C BC #### [facility] [address] [place] [address] Dr. Arnie Alvarez WBC 7.0 103/ul Normal 4.0-11.0 [facility] Comment on above: Performed By: #### C BC #### [facility] [address] [place] [address] ABD/PELV W CONon [...] and/or use of iterative reconstruction technique. FINDINGS: Reservations Agent: No pertinent findings, which are not already [...] acute intra-abdominal/pelvi c findings. Electronically authenticated by: VINEC WHITE Date: 2021-06-19 20:31 Normal [facility] LIPASEon 06-19-2021 Lipase [Catalytic activity/Vol] 98.0 U/L Normal 23.0-300.0 [facility] Comment on above: Performed By: #### C LEONARDA LANA, L[place] #### [facility] [address] [place] [address] Dr. Arnie Alvarez PROF 14(COMP METB)on 022 Albumin [Mass/Vol] 4.4 g/dL Normal 3.5-5.0 [facility] Comment on above: Performed By: #### C EDYTA LIPA, L[place] #### [facility] [address] [place] [address] Dr. Arnie Alvarez Albumin/Globulin [Mass ratio] 1.1 {ratio} Normal [facility] Comment on above: Performed By: #### C EDYTA LIPA, L[place] #### [facility] [address] [place] [address] Dr. Arnie Alvarez ALP [Catalytic activity/Vol] 68 U/L Normal 38-126 [facility] Comment on above: Performed By: #### C EDYTA LIPA, L[place] #### [facility] [address] [place] [address] Dr. Arnie Alvarez ALT [Catalytic activity/Vol] 32 U/L Normal 21-72 [facility] Comment on above: Performed By: #### C EDYTA LIPA, L[place] #### [facility] [address] [place] [address] Dr. Arnie Alvarez Anion gap [Moles/Vol] 10.9 mmol/L Normal [facility] Comment on above: Performed By: #### C EDYTA LIPA, L[place] #### [facility] [address] [place] [address] Dr. Arnie Alvarez AST [Catalytic activity/Vol] 16 U/L Critically low 17-59 [facility] Comment on above: Performed By: #### C EDYTA LIPA, L[place] #### [facility] [address] [place] [address] Dr. Arnie Alvarez Bilirubin [Mass/Vol] 1.4 mg/dL Critically high 0.2-1.3 [facility] Comment on above: Performed By: #### C LEONARDA LANA, L[place] #### [facility] [address] [address] [address] Arnie Alvarez Calcium [Mass/Vol] 9.6 mg/dL Normal 8.4-10.2 [facility] Comment on above: Performed By: #### C MP, LIPA, LONDON #### [facility] [address] [address] [address] Arnie Alvarez Chloride [Moles/Vol] 101 mmol/L Normal 98-107 [facility] Comment on above: Performed By: #### C MP, LIPA, LONDON #### [facility] [address] [place] [address] Dr. Arnie Alvarez CO2 [Moles/Vol] 26.6 mmol/L Normal 22.0-30.0 [facility] Comment on above: Performed By: #### C MP, LIPA, LONDON #### [facility] [address] [place] [address] Dr. Arnie Alvarez Creatinine [Mass/Vol] 0.93 mg/dL Normal 0.66-1.25 [facility] Comment on above: Performed By: #### C MP LIPA, LONDON #### [facility] [address] [place] [address] Dr. Arnie Alvarez EGFR-AF BURKINAN >60 Normal >=60 [facility] Comment on above: Performed By: #### C MP, LIPA, LONDON #### [facility] [address] [place] [address] Dr. Arnie Alvarez EGFR-NON AF BURKINAN >60 Normal >=60 [facility] Comment on above: Performed By: #### C MP, LIPA, LONDON #### [facility] [address] [place] [address] Dr. Arnie Alvarez Globulin (S) [Mass/Vol] 4.0 g/dL Normal [facility] Comment on above: Performed By: #### C MP, LIPA, LONDON #### [facility] [address] [place] [address] Dr. Arnie Alvarez Glucose [Mass/Vol] 110 mg/dL Critically high 74-106 [facility] Comment on above: Performed By: #### C LEONARDA LANA, L[place] #### [facility] [address] [place] [address] Dr. Arnie Alvarez Potassium [Moles/Vol] 3.5 mmol/L Normal 3.4-5.0 [facility] Comment on above: Performed By: #### C ELIZABETH LAN, [place] #### [facility] [address] [place] [address] Dr. Arnie Alvarez Protein [Mass/Vol] 8.4 g/dL Critically high 6.1-8.2 [facility] Comment on above: Performed By: #### C ELIZABETH LAN, L[place] #### [facility] [address] [place] [address] Dr. Arnie Alvarez Sodium [Moles/Vol] 135 mmol/L Critically low 137-145 [facility] Comment on above: Performed By: #### C ELIZABETH LAN, [place] #### [facility] [address] [place] [address] Dr. Arnie Alvarez Urea nitrogen [Mass/Vol] 11.0 mg/dL Normal 9.0-20.0 [facility] Comment on above: Performed By: #### C ELIZABETH LAN, L[place] #### [facility] [address] [place] [address] Dr. Arnie Alvarez Urea nitrogen/Creatinine [Mass ratio] 11.8 mg/mg Normal [facility] Comment on above: Performed By: #### C LEONARDA LANA, L[place] #### [facility] [address] [place] [address] Dr. Arnie Alvarez Covid-19 PCR (CVDTB)on SARS-CoV-2 (COVID-19) RNA VICENTA+probe Ql (Unsp spec) Not detected Normal NOT DETECTED [facility] Comment on above: Result Comment: This test is not yet approved or cleared by the [place] FDA. When there are no FDA-approved or cleared tests available, and other criteria are met, FDA can make tests available under an emergency access mechanism called an Emergency Use Authorization (EUA). The EUA for this test is supported by the Interior Painter of Health and Human Service's (HHS's) declaration [...] with SARS-CoV-2. Performed By: #### C VDTB ####[facility] [address] [address]Dr. Arnie Alvarez CBC AUTO DIFFon 02-18-2021 BASO # 0.0 103/ul Normal 0.0-0.1 [facility] Comment on above: Performed By: #### C BC #### [facility] [address] [place] [address] Dr. Arnie Alvarez Basophils/100 WBC (Bld) 0.4 % Normal 0.2-2.0 [facility] Comment on above: Performed By: #### C BC #### [facility] [address] [place] [address] Dr. Arnie Alvarez EO # 0.1 103/ul Normal 0.0-0.7 [facility] Comment on above: Performed By: #### C BC #### [facility] [address] [place] [address] Dr. Arnie Alvarez Eosinophils/100 WBC (Bld) 0.7 % Critically low 0.9-7.0 [facility] Comment on above: Performed By: #### C BC #### [facility] [address] [place] [address] Dr. Arnie Alvarez Erythrocyte distribution width (RBC) [Ratio] 11.9 % Normal 11.0-15.0 [facility] Comment on above: Performed By: #### C BC #### [facility] [address] [place] [address] Dr. Arnie Alvarez Hematocrit (Bld) [Volume fraction] 44.2 % Normal 42.0-54.0 [facility] Comment on above: Performed By: #### C BC #### [facility] [address] [place] [address] Dr. Arnie Alvarez Hemoglobin (Bld) [Mass/Vol] 15.1 g/dL Normal 14.0-18.0 [facility] Comment on above: Performed By: #### C BC #### [facility] [address] [place] [address] Dr. Arnie Alvarez IG # 0.02 10e3/ul Normal 0.00-0.03 [facility] Comment on above: Performed By: #### C BC #### [facility] [address] [place] [address] Dr. Arnie Alvarez IG % 0.2 % Normal 0.0-0.5 [facility] Comment on above: Performed By: #### C BC #### [facility] [address] [place] [address] Dr. Arnie Alvarez LYMPH # 1.6 103/ul Normal 1.2-3.8 [facility] Comment on above: Performed By: #### C BC #### [facility] [address] [place] [address] Dr. Arnie Alvarez Lymphocytes/100 WBC (Bld) 18.5 % Critically low 20.5-60.0 [facility] Comment on above: Performed By: #### C BC #### [facility] [address] [place] [address] Dr. Arnie Alvarez MANUAL DIFF REQ NO Normal [facility] Comment on above: Performed By: #### C BC #### [facility] [address] [place] [address] Dr. Arnie Alvarez MCH (RBC) [Entitic mass] 28.4 pg Normal 25.9-34.0 [facility] Comment on above: Performed By: #### C BC #### [facility] [address] [place] [address] Dr. Arnie Alvarez MCHC (RBC) [Mass/Vol] 34.2 g/dL Normal 29.9-35.2 [facility] Comment on above: Performed By: #### C BC #### [facility] [address] [address] [address] Arnie Alvarez MCV (RBC) [Entitic vol] 83.2 fL Normal 80.0-94.0 [facility] Comment on above: Performed By: #### C BC #### [facility] [address] [address] [address] Arnie Avlarez MONO # 0.5 103/ul Normal 0.3-0.8 [facility] Comment on above: Performed By: #### C BC #### [facility] [address] [place] [address] Dr. Arnie Alvarez Monocytes/100 WBC (Bld) 6.2 % Normal 1.7-12.0 [facility] Comment on above: Performed By: #### C BC #### [facility] [address] [place] [address] Dr. Arnie Alvarez NEUT # 6.3 103/ul Normal 1.4-6.5 [facility] Comment on above: Performed By: #### C BC #### [facility] [address] [place] [address] Dr. Arnie Alvarez Neutrophils/100 WBC (Bld) 74.0 % Normal 43.0-75.0 [facility] Comment on above: Performed By: #### C BC #### [facility] [address] [place] [address] Dr. Arnie Alvarez Platelet mean volume (Bld) [Entitic vol] 10.2 fL Normal 9.5-13.5 [facility] Comment on above: Performed By: #### C BC #### [facility] [address] [place] [address] Dr. Arnie Alvarez PLT 302 103/ul Normal 150-450 [facility] Comment on above: Performed By: #### C BC #### [facility] [address] [place] [address] Dr. Arnie Alvarez RBC 5.31 106/ul Normal 4.70-6.10 [facility] Comment on above: Performed By: #### C BC #### [facility] [address] [address] [address] Arnie Alvarez WBC 8.5 103/ul Normal 4.0-11.0 [facility] Comment on above: Performed By: #### C BC #### [facility] [address] [address] [address] Arnie Alvarez CRPon 02-18-2021 CRP [Mass/Vol] mg/L Normal <=1.0 [facility] Comment on above: Performed By: #### B MP, CRP ####[facility] [address] [address]Dr. Arnie Alvarez ER URINE PROFILEon Bilirubin Ql (U) Negative Normal NEGATIVE [facility] Comment on above: Performed By: #### Lyn MONTANEZ UMICRO #### [facility] [address] [place] [address] Dr. Arnie Alvarez Clarity (U) CLEAR Normal CLEAR [facility] Comment on above: Performed By: #### Lyn MONTANEZ UMICRO #### [facility] [address] [place] [address] Dr. Arnie Alvarez Color (U) YELLOW Normal YELLOW [facility] Comment on above: Performed By: #### Lyn MONTANEZ UMICRO #### [facility] [address] [place] [address] Dr. Arnie JUÁREZMarilee A micrscopic examination will be performed if indicated. Normal [facility] Comment on above: Performed By: #### Lyn MONTANEZ UMICRO #### [facility] [address] [place] [address] Dr. Arnie Alvarez Glucose Ql (U) Negative Normal NEGATIVE [facility] Comment on above: Performed By: #### Lyn MONTANEZ UMICRO #### [facility] [address] [place] [address] Dr. Arnie Alvarez Hemoglobin Ql (U) TRACE-INTACT Abnormal NEGATIVE [facility] Comment on above: Performed By: #### Lyn MONTANEZ UMICRO #### [facility] [address] [place] [address] Dr. Arnie Alvarez Ketones Ql (U) TRACE Abnormal NEGATIVE [facility] Comment on above: Performed By: #### YUSUF MARTINEZRO #### [facility] [address] [place] [address] Dr. Arnie Alvarez LEUKOCYTES Negative Normal NEGATIVE [facility] Comment on above: Performed By: #### YUSUF MARTINEZRO #### [facility] [address] [place] [address] Dr. Arnie Alvarez Nitrite Ql (U) Negative Normal NEGATIVE [facility] Comment on above: Performed By: #### YUSUF MARTINEZRO #### [facility] [address] [place] [address] Dr. Arnie Alvarez pH (U) 6.0 [pH] Normal 5-9 [facility] Comment on above: Performed By: #### YUSUF MARTINEZRO #### [facility] [address] [place] [address] Dr. Arnie Alvarez SPEC GRAVITY >=1.030 Abnormal 1.005-<=1.025 [facility] Comment on above: Performed By: #### YUSUF MARTINEZRO #### [facility] [address] [place] [address] Dr. Arnie Alvarez UA PROTEIN Negative Normal NEGATIVE/ TRACE [facility] Comment on above: Performed By: #### YUSUF MARTINEZRO #### [facility] [address] [place] [address] Dr. Arnie Alvarez UR MICRO IND INDICATED Normal [facility] Comment on above: Performed By: #### YUSUF MARTINEZRO #### [facility] [address] [place] [address] Dr. Arnie Alvarez Urobilinogen Qn (U) 0.2 {Dasha'U}/dL Normal 0.2 - 1. 0 [facility] Comment on above: Performed By: #### YUSUF MARTINEZRO #### [facility] [address] [place] [address] Dr. Arnie Alvarez PROF CHEM 8 (BAS METB)on Anion gap [Moles/Vol] 10.5 mmol/L Normal [facility] Comment on above: Performed By: #### B MP, CRP #### [facility] [address] [place] [address] Dr. Arnie Alvarez Calcium [Mass/Vol] 9.5 mg/dL Normal 8.4-10.2 [facility] Comment on above: Performed By: #### B MP, CRP #### [facility] [address] [place] [address] Dr. Arnie Alvarez Chloride [Moles/Vol] 102 mmol/L Normal 98-107 [facility] Comment on above: Performed By: #### B MP, CRP #### [facility] [address] [place] [address] Dr. Arnie Alvarez CO2 [Moles/Vol] 28.1 mmol/L Normal 22.0-30.0 [facility] Comment on above: Performed By: #### B MP, CRP #### [facility] [address] [place] [address] Dr. Arnie Alvarez Creatinine [Mass/Vol] 1.06 mg/dL Normal 0.66-1.25 [facility] Comment on above: Performed By: #### B MP, CRP #### [facility] [address] [place] [address] Dr. Arnie Alvarez EGFR-AF BURKINAN >60 Normal >=60 [facility] Comment on above: Performed By: #### B MP, CRP #### [facility] [address] [place] [address] Dr. Arnie Alvarez EGFR-NON AF BURKINAN >60 Normal >=60 [facility] Comment on above: Performed By: #### B MP, CRP #### [facility] [address] [place] [address] Dr. Arnie Alvarez Glucose [Mass/Vol] 105 mg/dL Normal 74-106 [facility] Comment on above: Performed By: #### B MP, CRP #### [facility] [address] [place] [address] Dr. Arnie Alvarez Potassium [Moles/Vol] 3.6 mmol/L Normal 3.4-5.0 [facility] Comment on above: Performed By: #### B EDYTA, CRP #### [facility] [address] [address] [address] Arnie Alvarez Sodium [Moles/Vol] 137 mmol/L Normal 137-145 [facility] Comment on above: Performed By: #### B MP, CRP #### [facility] [address] [address] [address] Arnie Alvarez Urea nitrogen [Mass/Vol] 11.0 mg/dL Normal 9.0-20.0 [facility] Comment on above: Performed By: #### B EDYTA, CRP #### [facility] [address] [place] [address] Dr. Arnie Alvarez Urea nitrogen/Creatinine [Mass ratio] 10.4 mg/mg Normal [facility] Comment on above: Performed By: #### B EDYTA, CRP #### [facility] [address] [place] [address] Dr. Arnie Alvarez URINE MICROSCOPIC ONLYon BACTERIA TRACE Abnormal NONE SEEN [facility] Comment on above: Performed By: #### Lyn MONTANEZ UMICRO #### [facility] [address] [place] [address] Dr. Arnie Alvarez Bacteria identified Cx Nom (U) NOT INDICATED Normal [facility] Comment on above: Performed By: #### Lyn MONTANEZ UMICRO #### [facility] [address] [place] [address] Dr. Arnie Alvarez CAST SEEN Abnormal NONE SEEN [facility] [place] Comment on above: Performed By: #### Lyn MONTANEZ UMICRO #### [facility] [address] [place] [address] Dr. Arnie Alvarez Crystals LM Nom (Urine sed) NONE SEEN Normal NONE SEEN [facility] [place] Comment on above: Performed By: #### Lyn MONTANEZ UMICRO #### [facility] [address] [place] [address] Dr. Arnie Alvarez Epithelial cells LM Ql (Urine sed) FEW Abnormal NONE SEEN /RARE [facility] Comment on above: Performed By: #### E RUR, UMICRO #### [facility] [address] [address] [address] Arnie Alvarez HYALINE CAST RARE Normal [facility] Comment on above: Performed By: #### E RUR, UMICRO #### [facility] [address] [address] [address] Arnie Alvarez MUCOUS SMALL Abnormal NONE SEEN [facility] Comment on above: Performed By: #### E RUR, UMICRO #### [facility] [address] [address] [address] Arnie Alvarez RBC 2-5 Abnormal 0-2 [facility] [place] Comment on above: Performed By: #### E RUR, UMICRO #### [facility] [address] [place] [address] Dr. Arnie Alvarez WBC NONE SEEN Normal NONE SEEN [facility] [place] Comment on above: Performed By: #### E RUR, UMICRO #### [facility] [address] [place] [address] Dr. Arnie Alvarez US SCROTUM W VASCULAR [...] Tim FIELD Date: 2021-02-18 04:16 Normal [facility] ER URINE PROFILEon 1 Bilirubin Ql (U) Negative Normal NEGATIVE [facility] Comment on above: Performed By: #### E RUR ####[facility] [address] [place], [place] [address]Dr. Arnie Alvarez Clarity (U) CLEAR Normal CLEAR [facility] Comment on above: Performed By: #### E RUR ####[facility] [address] [place], [place] [address]Dr. Arnie Alvarez Color (U) LT. YELLOW Normal YELLOW [facility] [place] Comment on above: Performed By: #### E RUR ####[facility] [address] [place], [place] [address]Dr. Arnie Alvarez ERUAHD A micrscopic examination will be performed if indicated. Normal [facility] [place] Comment on above: Performed By: #### E RUR ####[facility] [address] [place], [place] [address]Dr. Arnie Alvarez Glucose Ql (U) Negative Normal NEGATIVE The [facility] Comment on above: Performed By: #### E RUR ####[facility] [address] [place], [place] [address]Dr. Arnie Alvarez Hemoglobin Ql (U) Negative Normal NEGATIVE [facility] Comment on above: Performed By: #### E RUR ####[facility] [address] [place], [place] [address]Dr. Arnie Alvarez Ketones Ql (U) Negative Normal NEGATIVE The [facility] Comment on above: Performed By: #### E RUR ####[facility] [address] [place], [place] [address]Dr. Arnie Alvarez LEUKOCYTES Negative Normal NEGATIVE [facility] [place] Comment on above: Performed By: #### E RUR ####[facility] [address] [place], [place] [address]Dr. Arnie Alvarez Nitrite Ql (U) Negative Normal NEGATIVE The [facility] Comment on above: Performed By: #### E RUR ####[facility] [address] [place], [place] [address]Dr. Yilan Alvarez pH (U) 6.0 [pH] Normal 5-9 [facility] Comment on above: Performed By: #### E RUR ####[facility] [address] [id number]. Arnie Alvarez SPEC GRAVITY <=1.005 Abnormal 1.005-<=1.025 [facility] Comment on above: Performed By: #### E RUR ####[facility] [address] [address]Dr. Arnie Alvarez UA PROTEIN Negative Normal NEGATIVE/ TRACE [facility] Comment on above: Performed By: #### E RUR ####[facility] [address] [place], [place] [address]Dr. Arnie Alvarez UR MICRO IND NOT INDICATED Normal [facility] Comment on above: Performed By: #### E RUR ####[facility] [address] [address]Dr. Arnie Alvarez Urobilinogen Qn (U) 0.2 {Dasha'U}/dL Normal 0.2 - 1. 0 [facility] [place] Comment on above: Performed By: #### E RUR ####[facility] [address] [place], [place] [address]DrSmitha Alvarez Vital Signs Date Time Vital Sign Value Performing Clinician Facility 06-11-2023 17:55-0500 Body height 185.42 cm Marce Callahan Other [facility] Other 06-11-2023 17:55-0500 Body mass index (BMI) [Ratio] 34.3 kg/m2 Marce Callahan Other [facility] Other 06-11-2023 17:55-0500 Body temperature 98 [degF] Marce Callahan Other [facility] Other 06-11-2023 17:55-0500 Body weight 117.94 kg Marce Callahan Other [facility] Other 06-11-2023 17:55-0500 Respiratory rate 16 /min Marce Callahan Other [facility] Other 06-11-2023 17:55-0500 SaO2% (BldA) [Mass fraction] 99 % Marce Callahan Other [facility] Other Encounters Encounter Date Encounter Type Care Provider Facility Start: 06-11-2023 End: 06-11-2023 ambulatory Marce Callahan Other [facility] Other Start: 06-11-2023 Office outpatient ne w [...] Facility:[facility]1 Payers Date Payer Category Payer Unknown [id number] [id number] [id number] 1995 Unknown [id number] .[id number] 1995 Unknown [id number] .[id number] 1995 Unknown [id number] .[id number] 1995 Unknown [id number] .[id number] 1959 Unknown [id number] Social History Date Type Detail Facility Sex Assigned At [facility] Other Evaluation note 06-11-2023 Note Date & [...] understanding and is agreeable at this time [facility] Other Summary Purpose Family History No Family History Records Found Advance Directives No Advanced Directives Records Found Additional Source Comments (unrecognized sect ion and content) No Status Records Found INFORMATION SOURCE (unrecogn ized section and content) DATE CREATED AUTHOR 06/21/2021 [facility] REASON FOR VISIT (unrecogniz ed [...] BE BASED ON THE PRIMARY CLINICAL RECORDS. [facility]. provides no warranty or guarantee of the accuracy or completeness of information in this document.
--- NOTE | 2024-09-07 01:51 | ED.WOUNDLAC1 ---
HPI - Wound/Laceration General Chief Complaint: Wound/Laceration Stated Complaint: LACERATION Time Seen by Provider: 09/07/24 01:46 Source: patient Mode of arrival: walk-in Limitations: no limitations History of Present Illness HPI narrative: This 29-year-old male who is right-hand dominant presents for evaluation and requesting a tetanus shot. The patient states he was moving an old dryer this morning and did not realize that there were some nails or screws on the bottom. One of them cut the hypothenar eminence on his right hand. He states it was bleeding a lot at that time. It is since closed up. He has an approximately 2 cm superficial laceration to the hypothenar aspect of the right hand. He states he has not had a tetanus shot in many years and requests a tetanus shot. No additional injuries or complaints. Related Data Previous Rx's ?Medication ?Instructions ?Recorded hyoscyamine sulfate 0.125 mg 0.125 mg PO Q6H PRN abdominal pain 05/01/24 tablet (Levsin) #12 tabs ondansetron 4 mg disintegrating 4 mg PO Q6H PRN nausea and 05/01/24 tablet vomiting #12 tabs pantoprazole 40 mg tablet,delayed 40 mg PO DAILY #7 tabs 05/01/24 release (Protonix) Allergies Allergy/AdvReac Type Severity Reaction Status Date / Time No Known Drug Allergies Allergy Verified 11/05/23 22:43 Review of Systems ROS Status of ROS 10 or more systems reviewed and unremarkable except as noted in history and below PFSH PFSH Social History Smoking status: Never smoker Little interest or pleasure in doing things: not at all Feeling down, depressed, or hopeless: not at all Exam Narrative Exam Narrative: Vital signs and Nursing Notes reviewed: Patient is afebrile with a normal pulse, blood pressure is elevated 155/98, he has not hypoxic with pulse ox of 99% on room air General: Awake, alert, oriented, no acute distress, lying comfortably on the stretcher HEENT: Normocephalic atraumatic, mucous membranes are moist and pink, eyes are clear, normal conjunctiva, vision is grossly intact Chest: Lungs are clear to auscultation with good air entry, there is no wheezing rhonchi or rales appreciated no accessory muscle use, patient is speaking in complete sentences-no chest wall tenderness to palpation CVS: Regular rate and rhythm S1-S2, no murmurs rubs or gallops, pulses are brisk and equal bilaterally Extremities: 2 cm superficial abrasion on the hypothenar eminence of the right hand. No active bleeding. No sign of infection or foreign body Skin: Normal in appearance without rash,pallor, petechiae or purpura Neuro: No focal deficits Constitutional Vital Signs, click to edit/add: Last Vital Signs Temp 98.5 F 09/07/24 01:40 Pulse 88 09/07/24 01:40 Resp 16 09/07/24 01:40 BP 155/98 H 09/07/24 01:40 Pulse Ox 99 09/07/24 01:40 O2 Del Method Room Air 09/07/24 01:40 Course Vital Signs Vital signs: Vital Signs Temperature 98.5 F 09/07/24 01:40 Pulse Rate 88 09/07/24 01:40 Respiratory Rate 16 09/07/24 01:40 Blood Pressure 155/98 H 09/07/24 01:40 Pulse Oximetry 99 09/07/24 01:40 Oxygen Delivery Method Room Air 09/07/24 01:40 Temperature 98.5 F 09/07/24 01:40 Pulse Rate 88 09/07/24 01:40 Respiratory Rate 16 09/07/24 01:40 Blood Pressure 155/98 H 09/07/24 01:40 Pulse Oximetry 99 09/07/24 01:40 Oxygen Delivery Method Room Air 09/07/24 01:40 MDM - Wound/Laceration MDM Narrative Medical decision making narrative: Patient presents for evaluation of a superficial laceration in his right hand and request for a tetanus shot. He cut himself on an old dryer that he was moving earlier today. He has an approximately 2 cm superficial laceration that does not require any intervention on his right hand. A bacitracin dressing was applied topically over this laceration and his tetanus was updated. Discharge Plan Discharge Chief Complaint: Wound/Laceration Clinical Impression: Laceration, Encounter for administration of vaccine Patient Disposition: Home, Self-Care Time of Disposition Decision: 01:51 Condition: Good Prescriptions / Home Meds: No Action pantoprazole [Protonix] 40 mg tablet,delayed release (DR/EC) 40 mg PO DAILY Qty: 7 0RF hyoscyamine sulfate [Levsin] 0.125 mg tablet 0.125 mg PO Q6H PRN (Reason: abdominal pain) Qty: 12 0RF ondansetron 4 mg tablet,disintegrating 4 mg PO Q6H PRN (Reason: nausea and vomiting) Qty: 12 0RF Print Language: Occitan Referrals: Physician,Non-Staff, MD [Primary Care Provider] - 1 week
[2024-09-07] MEDS: ADACEL DIPH,PERTUSS(ACELL),TET VAC/PF 0.5 ML ADULT SYRINGE IM (02:06)
[2024-09-07] MEDS: BACITRACIN 0.9 GM PACKET 1 PACKET TOPICAL (02:07)
== END 2024-09-07 02:14 | disposition home or self-care (01) ==
PROVIDERS: Emergency Provider Emergency Medicine
DX: S61.411A Laceration without foreign body of right hand, initial encounter (principal); W45.0XXA Nail entering through skin, initial encounter; Z23 Encounter for immunization
CPT/HCPCS: 90471; 90715; 99284

== ENCOUNTER 2024-11-18 17:20 | Emergency (ER) | payer OTHER, SELFPAY ==
[2024-11-18 17:24] VITALS: BP 150/91; PULSE 97; TEMP 36.8; O2SAT 100; BMI 33.1
--- NOTE | 2024-11-18 17:33 | ED_ITS ---
HPI HPI - General Adult General Chief complaint: Ear Stated complaint: Ear Pain Time Seen by Provider: 11/18/24 17:22 Source: patient Mode of arrival: walk-in Limitations: no limitations History of Present Illness HPI narrative: The patient is a 29-year-old male who presents to the emergency department today for evaluation of concerns for reduced hearing to his right ear. He endorses 2 days ago he had some wax buildup that he subsequently self removed with a Q-tip and Debrox. He reports overall some improvement in hearing however he continues to have some reduced hearing mostly to his right ear and does endorse some popping and crackling when he swallows. No pain otherwise. No fevers or cough/cold symptoms. He mentions he does have seasonal allergies and does take Flonase. Related Data Allergies Allergy/AdvReac Type Severity Reaction Status Date / Time No Known Drug Allergies Allergy Verified 11/18/24 17:24 Review of Systems ROS Status of ROS 10 or more systems reviewed and unremark able except as noted in history and below PFSH PFS Social History Smoking status: Never smoker Little interest or pleasure in doing things: not at all Feeling down, depressed, or hopeless: not at all Exam Narrative Exam Narrative: Constituational: Awake/ alert, no apparent distress, well hydrated HENMT: normocephalic, internal/external ears normal, moist oral mucous membranes and oropharynx normal Eyes: EOMI and conjunctivae normal Neck: ROM intact, no lymphadenopathy Chest: inspection of chest normal Respiratory: Normal respiratory effort, clear to auscultation bilaterally Cardio: regular rate and regular rhythm MSK: ROM intact, +NVI Skin: no rashes or petechiae Neuro: no focal deficits Psych: mental status grossly normal Constitutional Vital Signs, click to edit/add: Last Vital Signs Temp 98.3 F 11/18/24 17:24 Pulse 97 H 11/18/24 17:24 Resp 18 11/18/24 17:24 BP 150/91 H 11/18/24 17:24 Pulse Ox 100 11/18/24 17:24 O2 Del Method Room Air 11/18/24 17:24 Course Vital Signs Vital signs: Vital Signs Temperature 98.3 F 11/18/24 17:24 Pulse Rate 97 H 11/18/24 17:24 Respiratory Rate 18 11/18/24 17:24 Blood Pressure 150/91 H 11/18/24 17:24 Pulse Oximetry 100 11/18/24 17:24 Oxygen Delivery Method Room Air 11/18/24 17:24 Temperature 98.3 F 11/18/24 17:24 Pulse Rate 97 H 11/18/24 17:24 Respiratory Rate 18 11/18/24 17:24 Blood Pressure 150/91 H 11/18/24 17:24 Pulse Oximetry 100 11/18/24 17:24 Oxygen Delivery Method Room Air 11/18/24 17:24 Medical Decision Making MDM Narrative Medical decision making narrative: Patient is a well-appearing 29-year-old male who presented to the emergency department today for evaluation concerns for reduced hearing to his right ear. Initial examination and vital signs overall stable. Historically patient had cerumen impaction that he did clear on his own and does endorse this did improve his hearing for the most part however he continues to still have some muffled hearing and crackling and popping in the ear with swallowing. No evidence of otitis or effusion obviously present. Tympanic membrane is intact and without evidence of perforation. Patient does have seasonal allergies and takes Flonase. Advised symptoms may possibly be related to effusion without signs of otitis. Use of jvyv-xwp-yuhtion antihistamines including Claritin or Zyrtec. He was provided referral/contact for ENT for follow-up. Discussed signs and symptoms of any worsening condition and when to consider reevaluation by the emergency department. Patient verbalized an understanding of this and is agreeable with the plan to be discharged home. Medical Records Medical records reviewed: Yes I reviewed the patient's medical records Discharge Plan Discharge Chief Complaint: Ear Clinical Impression: Hearing reduced Patient Disposition: Home, Self-Care Print Language: Czech Additional Instructions: Muller adding Claritin or Zyrtec daily to help reduce any fluid buildup behind your eardrum if your symptoms are related to your sinuses. Follow-up with ENT for reevaluation as discussed. Referrals: Santo Ragsdale MD [Primary Care Provider, Family Practice] - 1 week Julia Treviño MD [Physician, Ear, Nose, Throat] - 1 week
--- OUTSIDE RECORDS SUMMARY | 2024-11-18 19:58 | XMS_ITS | CCD ---
Author Organization [facility] Care Team Providers Care Oceanographer Assistant Name Role Phone REQUEST, DR NONE LISTED [...] [Catalytic activity/Vol] 38 U/L Normal 31-110 [facility] Comment on above: Performed By: #### C MP, LIPA, [place] #### [facility] [address] [place] [address] Dr. Arnie Alvarez CBC AUTO DIFFon 06-19-2021 BASO # 0.0 103/ul Normal 0.0-0.1 [facility] Comment on above: Performed By: #### C BC #### [facility] [address] [place] [address] Dr. Arnie Alvarez Basophils/100 WBC (Bld) 0.3 % Normal 0.2-2.0 [facility] Comment on above: Performed By: #### C BC #### [facility] [address] [place] [address] Dr. Arnie Alvarez EO # 0.0 103/ul Normal 0.0-0.7 [facility] Comment on above: Performed By: #### C BC #### [facility] [address] [place] [address] Dr. Arnie Alvarez Eosinophils/100 WBC (Bld) 0.3 % Critically low 0.9-7.0 [facility] Comment on above: Performed By: #### C BC #### [facility] [address] [place] [address] Dr. Arnie Alvarez Erythrocyte distribution width (RBC) [Ratio] 11.9 % Normal 11.0-15.0 [facility] Comment on above: Performed By: #### C BC #### [facility] [address] [place] [address] Dr. Arnie Alvarez Hematocrit (Bld) [Volume fraction] 45.0 % Normal 42.0-54.0 [facility] Comment on above: Performed By: #### C BC #### [facility] [address] [place] [address] Dr. Arnie Alvarze Hemoglobin (Bld) [Mass/Vol] 15.4 g/dL Normal 14.0-18.0 [facility] Comment on above: Performed By: #### C BC #### [facility] [address] [place] [address] Dr. Arnie Alvarez IG # 0.02 10e3/ul Normal 0.00-0.03 [facility] Comment on above: Performed By: #### C BC #### [facility] [address] [place] [address] Dr. Arnie Alvarez IG % 0.3 % Normal 0.0-0.5 [facility] Comment on above: Performed By: #### C BC #### [facility] [address] [place] [address] Dr. Arnie Alvarez LYMPH # 1.2 103/ul Normal 1.2-3.8 [facility] Comment on above: Performed By: #### C BC #### [facility] [address] [place] [address] Dr. Arnie Alvarez Lymphocytes/100 WBC (Bld) 16.4 % Critically low 20.5-60.0 [facility] Comment on above: Performed By: #### C BC #### [facility] [address] [place] [address] Dr. Arnie Alvarez MANUAL DIFF REQ NO Normal [facility] Comment on above: Performed By: #### C BC #### [facility] [address] [place] [address] Dr. Arnie Alvarez MCH (RBC) [Entitic mass] 28.4 pg Normal 25.9-34.0 [facility] Comment on above: Performed By: #### C BC #### [facility] [address] [place] [address] Dr. Arnie Alvarez MCHC (RBC) [Mass/Vol] 34.2 g/dL Normal 29.9-35.2 [facility] Comment on above: Performed By: #### C BC #### [facility] [address] [place] [address] Dr. Arnie Alvarez MCV (RBC) [Entitic vol] 83.0 fL Normal 80.0-94.0 [facility] Comment on above: Performed By: #### C BC #### [facility] [address] [place] [address] Dr. Arnie Alvarez MONO # 0.4 103/ul Normal 0.3-0.8 [facility] Comment on above: Performed By: #### C BC #### [facility] [address] [place] [address] Dr. Arnie Alvarez Monocytes/100 WBC (Bld) 5.9 % Normal 1.7-12.0 [facility] Comment on above: Performed By: #### C BC #### [facility] [address] [place] [address] Dr. Arnie Alvarez NEUT # 5.4 103/ul Normal 1.4-6.5 [facility] Comment on above: Performed By: #### C BC #### [facility] [address] [place] [address] Dr. Arnie Alvarez Neutrophils/100 WBC (Bld) 76.8 % Critically high 43.0-75.0 [facility] Comment on above: Performed By: #### C BC #### [facility] [address] [place] [address] Dr. Arnie Alvarez Platelet mean volume (Bld) [Entitic vol] 10.0 fL Normal 9.5-13.5 [facility] Comment on above: Performed By: #### C BC #### [facility] [address] [address] [address] Arnie Alvarez PLT 319 103/ul Normal 150-450 [facility] Comment on above: Performed By: #### C BC #### [facility] [address] [place] [address] Dr. Arnie Alvarze RBC 5.42 106/ul Normal 4.70-6.10 [facility] Comment on above: Performed By: #### C BC #### [facility] [address] [place] [address] Dr. Arnie Alvarez WBC 7.0 103/ul Normal 4.0-11.0 [facility] Comment on above: Performed By: #### C BC #### [facility] [address] [place] [address] ABD/PELV W CONon [...] and/or use of iterative reconstruction technique. 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 Arnie Alvarez PROF 14(COMP METB)on 022 Albumin [Mass/Vol] 4.4 g/dL Normal 3.5-5.0 [facility] Comment on above: Performed By: #### C EDYTA LIPA, [place] #### [facility] [address] [place] [address] Dr. Arnie Alvarez Albumin/Globulin [Mass ratio] 1.1 {ratio} Normal [facility] Comment on above: Performed By: #### C EDYTA LIPA, [place] #### [facility] [address] [place] [address] Dr. Arnie Alvarez ALP [Catalytic activity/Vol] 68 U/L Normal 38-126 [facility] Comment on above: Performed By: #### C EDYTA LIPA, L[place] #### [facility] [address] [place] [address] Dr. Arnie Alvarez ALT [Catalytic activity/Vol] 32 U/L Normal 21-72 [facility] Comment on above: Performed By: #### C EDYTA LIPA, [place] #### [facility] [address] [place] [address] Dr. Arnie Alvarez Anion gap [Moles/Vol] 10.9 mmol/L Normal [facility] Comment on above: Performed By: #### C EDYTA LIPA, [place] #### [facility] [address] [place] [address] Dr. Arnie Alvarez AST [Catalytic activity/Vol] 16 U/L Critically low 17-59 [facility] Comment on above: Performed By: #### C EDYTA LIPA, L[place] #### [facility] [address] [place] [address] Dr. Arnie Alvarez Bilirubin [Mass/Vol] 1.4 mg/dL Critically high 0.2-1.3 [facility] Comment on above: Performed By: #### C LEONARDA LANA, [place] #### [facility] [address] [address] [address] Arnie Alvarez Calcium [Mass/Vol] 9.6 mg/dL Normal 8.4-10.2 [facility] Comment on above: Performed By: #### C MP, LIPA, L[place] #### [facility] [address] [address] [address] Arnie Alvarez Chloride [Moles/Vol] 101 mmol/L Normal 98-107 [facility] Comment on above: Performed By: #### C MP, LIPA, L[place]ON #### [facility] [address] [place] [address] Dr. Arnie Alvarez CO2 [Moles/Vol] 26.6 mmol/L Normal 22.0-30.0 [facility] Comment on above: Performed By: #### C MP, LIPA, L[place]ON #### [facility] [address] [place] [address] Dr. Arnie Alvarez Creatinine [Mass/Vol] 0.93 mg/dL Normal 0.66-1.25 [facility] Comment on above: Performed By: #### C MP LIPA, LONDON #### [facility] [address] [place] [address] Dr. Arnie Alvarez EGFR-AF BOLIVIAN >60 Normal >=60 [facility] Comment on above: Performed By: #### C MP, LIPA, L[place] #### [facility] [address] [place] [address] Dr. Arnie Alvarez EGFR-NON AF BOLIVIAN >60 Normal >=60 [facility] Comment on above: Performed By: #### C MP, LIPA, L[place] #### [facility] [address] [place] [address] Dr. Arnie Alvarez Globulin (S) [Mass/Vol] 4.0 g/dL Normal [facility] Comment on above: Performed By: #### C MP, LIPA, L[place] #### [facility] [address] [place] [address] Dr. Arnie Alvarez Glucose [Mass/Vol] 110 mg/dL Critically high 74-106 [facility] Comment on above: Performed By: #### C LEONARDA LANA, [place] #### [facility] [address] [place] [address] Dr. Arnie Alvarez Potassium [Moles/Vol] 3.5 mmol/L Normal 3.4-5.0 [facility] Comment on above: Performed By: #### C ELIZABETH LAN, [place] #### [facility] [address] [place] [address] Dr. Arnie Alvarez Protein [Mass/Vol] 8.4 g/dL Critically high 6.1-8.2 [facility] Comment on above: Performed By: #### C ELIZABETH LAN, [place] #### [facility] [address] [place] [address] Dr. Arnie Alvarez Sodium [Moles/Vol] 135 mmol/L Critically low 137-145 [facility] Comment on above: Performed By: #### C ELIZABETH LAN, [place] #### [facility] [address] [place] [address] Dr. Arnie Alvarez Urea nitrogen [Mass/Vol] 11.0 mg/dL Normal 9.0-20.0 [facility] Comment on above: Performed By: #### C ELIZABETH LAN, [place] #### [facility] [address] [place] [address] Dr. Arnie Alvarez Urea nitrogen/Creatinine [Mass ratio] 11.8 mg/mg Normal [facility] Comment on above: Performed By: #### C LEONARDA LANA, [place] #### [facility] [address] [place] [address] Dr. Arine Alvarez Covid-19 PCR (CVDTB)on SARS-CoV-2 (COVID-19) RNA VICENTA+probe Ql (Unsp spec) Not detected Normal NOT DETECTED [facility] Comment on above: Result Comment: This test is not yet approved or cleared by the [place] FDA. When there are no FDA-approved or cleared tests available, and other criteria are met, FDA can make tests available under an emergency access mechanism called an Emergency Use Authorization (EUA). The EUA for this test is supported by the [employer] of Health and Human Service's (HHS's) declaration [...] with SARS-CoV-2. Performed By: #### C VDTB ####[facility] [address] [address]Dr. Arnie Alvarez CBC AUTO DIFFon 02-18-2021 BASO # 0.0 103/ul Normal 0.0-0.1 [facility] Comment on above: Performed By: #### C BC #### [facility] [address] [place] [address] Dr. Arnie Alvarez Basophils/100 WBC (Bld) 0.4 % Normal 0.2-2.0 [facility] Comment on above: Performed By: #### C BC #### [facility] [address] [place] [address] Dr. Arnie Alvarez EO # 0.1 103/ul Normal 0.0-0.7 [facility] Comment on above: Performed By: #### C BC #### [facility] [address] [place] [address] Dr. Arnie Alvarez Eosinophils/100 WBC (Bld) 0.7 % Critically low 0.9-7.0 [facility] Comment on above: Performed By: #### C BC #### [facility] [address] [place] [address] Dr. Arnie Alvarez Erythrocyte distribution width (RBC) [Ratio] 11.9 % Normal 11.0-15.0 [facility] Comment on above: Performed By: #### C BC #### [facility] [address] [place] [address] Dr. Arnie Alvarez Hematocrit (Bld) [Volume fraction] 44.2 % Normal 42.0-54.0 [facility] Comment on above: Performed By: #### C BC #### [facility] [address] [place] [address] Dr. Arnie Alvarez Hemoglobin (Bld) [Mass/Vol] 15.1 g/dL Normal 14.0-18.0 [facility] Comment on above: Performed By: #### C BC #### [facility] [address] [place] [address] Dr. Arnie Alvarez IG # 0.02 10e3/ul Normal 0.00-0.03 [facility] Comment on above: Performed By: #### C BC #### [facility] [address] [place] [address] Dr. Arnie Alvarez IG % 0.2 % Normal 0.0-0.5 [facility] Comment on above: Performed By: #### C BC #### [facility] [address] [place] [address] Dr. Arnie Alvarez LYMPH # 1.6 103/ul Normal 1.2-3.8 [facility] Comment on above: Performed By: #### C BC #### [facility] [address] [place] [address] Dr. Arnie Alvarez Lymphocytes/100 WBC (Bld) 18.5 % Critically low 20.5-60.0 [facility] Comment on above: Performed By: #### C BC #### [facility] [address] [place] [address] Dr. Arnie Alvarez MANUAL DIFF REQ NO Normal [facility] Comment on above: Performed By: #### C BC #### [facility] [address] [place] [address] Dr. Arnie Alvarez MCH (RBC) [Entitic mass] 28.4 pg Normal 25.9-34.0 [facility] Comment on above: Performed By: #### C BC #### [facility] [address] [place] [address] Dr. Arnie Alvarez MCHC (RBC) [Mass/Vol] 34.2 g/dL Normal 29.9-35.2 [facility] Comment on above: Performed By: #### C BC #### [facility] [address] [address] [address] Arnie Alvarez MCV (RBC) [Entitic vol] 83.2 fL Normal 80.0-94.0 [facility] Comment on above: Performed By: #### C BC #### [facility] [address] [address] [address] Arnie Alvarez MONO # 0.5 103/ul Normal 0.3-0.8 [facility] Comment on above: Performed By: #### C BC #### [facility] [address] [place] [address] Dr. Arnie Alvarez Monocytes/100 WBC (Bld) 6.2 % Normal 1.7-12.0 [facility] Comment on above: Performed By: #### C BC #### [facility] [address] [place] [address] Dr. Arnie Alvarez NEUT # 6.3 103/ul Normal 1.4-6.5 [facility] Comment on above: Performed By: #### C BC #### [facility] [address] [place] [address] Dr. Arnie Alvarez Neutrophils/100 WBC (Bld) 74.0 % Normal 43.0-75.0 [facility] Comment on above: Performed By: #### C BC #### [facility] [address] [place] [address] Dr. Arnie Alvarez Platelet mean volume (Bld) [Entitic vol] 10.2 fL Normal 9.5-13.5 [facility] Comment on above: Performed By: #### C BC #### [facility] [address] [place] [address] Dr. Arnie Alvarez PLT 302 103/ul Normal 150-450 [facility] Comment on above: Performed By: #### C BC #### [facility] [address] [place] [address] Dr. Arnie Alvarez RBC 5.31 106/ul Normal 4.70-6.10 [facility] Comment on above: Performed By: #### C BC #### [facility] [address] [address] [address] Arnie Alvarez WBC 8.5 103/ul Normal 4.0-11.0 [facility] Comment on above: Performed By: #### C BC #### [facility] [address] [address] [address] Arnie Alvarez CRPon 02-18-2021 CRP [Mass/Vol] mg/L Normal <=1.0 [facility] Comment on above: Performed By: #### B MP, CRP ####[facility] [address] [address]Dr. Arnie Alvarez ER URINE PROFILEon Bilirubin Ql (U) Negative Normal NEGATIVE [facility] Comment on above: Performed By: #### Lyn MONTANEZ UMICRO #### [facility] [address] [place] [address] Dr. Arnie Alvarez Clarity (U) CLEAR Normal CLEAR [facility] Comment on above: Performed By: #### Lyn MONTANEZ UMICRO #### [facility] [address] [place] [address] Dr. Arnie Alvarez Color (U) YELLOW Normal YELLOW [facility] Comment on above: Performed By: #### Lyn MONTANEZ UMICRO #### [facility] [address] [place] [address] Dr. Arnie JUÁREZMarilee A micrscopic examination will be performed if indicated. Normal [facility] Comment on above: Performed By: #### Lyn MONTANEZ UMICRO #### [facility] [address] [place] [address] Dr. Arnie Alvarez Glucose Ql (U) Negative Normal NEGATIVE [facility] Comment on above: Performed By: #### Lyn MONTANEZ UMICRO #### [facility] [address] [place] [address] Dr. Arnie Alvarez Hemoglobin Ql (U) TRACE-INTACT Abnormal NEGATIVE [facility] Comment on above: Performed By: #### Lyn MONTANEZ UMICRO #### [facility] [address] [place] [address] Dr. Arnie Alvarez Ketones Ql (U) TRACE Abnormal NEGATIVE [facility] Comment on above: Performed By: #### YUSUF MARTINEZRO #### [facility] [address] [place] [address] Dr. Arnie Alvarez LEUKOCYTES Negative Normal NEGATIVE [facility] Comment on above: Performed By: #### YUSUF MARTINEZRO #### [facility] [address] [place] [address] Dr. Arnie Alvarez Nitrite Ql (U) Negative Normal NEGATIVE [facility] Comment on above: Performed By: #### YUSUF MARTINEZRO #### [facility] [address] [place] [address] Dr. Arnie Alvarez pH (U) 6.0 [pH] Normal 5-9 [facility] Comment on above: Performed By: #### YUSUF MARTINEZRO #### [facility] [address] [place] [address] Dr. Arnie Alvarez SPEC GRAVITY >=1.030 Abnormal 1.005-<=1.025 [facility] Comment on above: Performed By: #### YUSUF MARTINEZRO #### [facility] [address] [place] [address] Dr. Arnie Alvarez UA PROTEIN Negative Normal NEGATIVE/ TRACE [facility] Comment on above: Performed By: #### YUSUF MARTINEZRO #### [facility] [address] [place] [address] Dr. Arnie Alvarez UR MICRO IND INDICATED Normal [facility] Comment on above: Performed By: #### YUSUF MARTINEZRO #### [facility] [address] [place] [address] Dr. Arnie Alvarez Urobilinogen Qn (U) 0.2 {Dasha'U}/dL Normal 0.2 - 1. 0 [facility] Comment on above: Performed By: #### YUSUF MARTINEZRO #### [facility] [address] [place] [address] Dr. Arnie Alvarez PROF CHEM 8 (BAS METB)on Anion gap [Moles/Vol] 10.5 mmol/L Normal [facility] Comment on above: Performed By: #### B MP, CRP #### [facility] [address] [place] [address] Dr. Arnie Alvarez Calcium [Mass/Vol] 9.5 mg/dL Normal 8.4-10.2 [facility] Comment on above: Performed By: #### B MP, CRP #### [facility] [address] [place] [address] Dr. Arnie Alvarez Chloride [Moles/Vol] 102 mmol/L Normal 98-107 [facility] Comment on above: Performed By: #### B MP, CRP #### [facility] [address] [place] [address] Dr. Arnie Alvarez CO2 [Moles/Vol] 28.1 mmol/L Normal 22.0-30.0 [facility] Comment on above: Performed By: #### B MP, CRP #### [facility] [address] [place] [address] Dr. Arnie Alvarez Creatinine [Mass/Vol] 1.06 mg/dL Normal 0.66-1.25 [facility] Comment on above: Performed By: #### B MP, CRP #### [facility] [address] [place] [address] Dr. Arnie Alvarez EGFR-AF BOLIVIAN >60 Normal >=60 [facility] Comment on above: Performed By: #### B MP, CRP #### [facility] [address] [place] [address] Dr. Arnie Alvarez EGFR-NON AF BOLIVIAN >60 Normal >=60 [facility] Comment on above: Performed By: #### B MP, CRP #### [facility] [address] [place] [address] Dr. Arnie Alvarez Glucose [Mass/Vol] 105 mg/dL Normal 74-106 [facility] Comment on above: Performed By: #### B MP, CRP #### [facility] [address] [place] [address] Dr. Arnie Alvarez Potassium [Moles/Vol] 3.6 mmol/L Normal 3.4-5.0 [facility] Comment on above: Performed By: #### B EDYTA, CRP #### [facility] [address] [address] [address] Arnie Alvarez Sodium [Moles/Vol] 137 mmol/L Normal 137-145 [facility] Comment on above: Performed By: #### B MP, CRP #### [facility] [address] [address] [address] Arnie Alvarez Urea nitrogen [Mass/Vol] 11.0 mg/dL Normal 9.0-20.0 [facility] Comment on above: Performed By: #### B EDYTA, CRP #### [facility] [address] [place] [address] Dr. Arnie Alvarez Urea nitrogen/Creatinine [Mass ratio] 10.4 mg/mg Normal [facility] Comment on above: Performed By: #### B EDYTA, CRP #### [facility] [address] [place] [address] Dr. Arnie Alvarez URINE MICROSCOPIC ONLYon BACTERIA TRACE Abnormal NONE SEEN [facility] Comment on above: Performed By: #### Lyn MONTANEZ UMICRO #### [facility] [address] [place] [address] Dr. Arnie Alvarez Bacteria identified Cx Nom (U) NOT INDICATED Normal [facility] Comment on above: Performed By: #### Lyn MONTANEZ UMICRO #### [facility] [address] [place] [address] Dr. Arnie Alvarez CAST SEEN Abnormal NONE SEEN [facility] Comment on above: Performed By: #### Lyn MONTANEZ UMICRO #### [facility] [address] [place] [address] Dr. Arnie Alvarez Crystals LM Nom (Urine sed) NONE SEEN Normal NONE SEEN [facility] Comment on above: Performed By: #### Lyn MONTANEZ UMICRO #### [facility] [address] [place] [address] Dr. Arnie Alvarez Epithelial cells LM Ql (Urine sed) FEW Abnormal NONE SEEN /RARE [facility] Comment on above: Performed By: #### E RUR, UMICRO #### [facility] [address] [address] [address] Arnie Alvarez HYALINE CAST RARE Normal [facility] Comment on above: Performed By: #### E RUR, UMICRO #### [facility] [address] [address] [address] Arnie Alvarez MUCOUS SMALL Abnormal NONE SEEN [facility] Comment on above: Performed By: #### E RUR, UMICRO #### [facility] [address] [address] [address] Arnie Alvarez RBC 2-5 Abnormal 0-2 [facility] Comment on above: Performed By: #### E RUR, UMICRO #### [facility] [address] [place] [address] Dr. Arnie Alvarez WBC NONE SEEN Normal NONE SEEN [facility] Comment on above: Performed By: #### E RUR, UMICRO #### [facility] [address] [place] [address] Dr. Arnie Alvarez US SCROTUM W VASCULAR [...] Tim FIELD Date: 2021-02-18 04:16 Normal [facility] ER URINE PROFILEon 1 Bilirubin Ql (U) Negative Normal NEGATIVE [facility] Comment on above: Performed By: #### E RUR ####[facility] [address] [place], [place] [address]Dr. Arnie Alvarez Clarity (U) CLEAR Normal CLEAR [facility] Comment on above: Performed By: #### E RUR ####[facility] [address] [place], [place] [address]Dr. Arnie Alvarez Color (U) LT. YELLOW Normal YELLOW [facility] Comment on above: Performed By: #### E RUR ####[facility] [address] [place], [place] [address]Dr. Arnie Alvarez ERUAHD A micrscopic examination will be performed if indicated. Normal [facility] Comment on above: Performed By: #### E RUR ####[facility] [address] [place], [place] [address]Dr. Arnie Alvarez Glucose Ql (U) Negative Normal NEGATIVE [facility] Comment on above: Performed By: #### E RUR ####[facility] [address] [place], [place] [address]Dr. Arnie Alvarez Hemoglobin Ql (U) Negative Normal NEGATIVE [facility] Comment on above: Performed By: #### E RUR ####[facility] [address] [place], [place] [address]Dr. Arnie Alvarez Ketones Ql (U) Negative Normal NEGATIVE [facility] Comment on above: Performed By: #### E RUR ####[facility] [address] [place], [place] [address]Dr. Arnie Alvarez LEUKOCYTES Negative Normal NEGATIVE [facility] Comment on above: Performed By: #### E RUR ####[facility] [id number] [place], [place] [address]Dr. Arnie Alvarez Nitrite Ql (U) Negative Normal NEGATIVE [facility] Comment on above: Performed By: #### E RUR ####[facility] [address] [place], [place] [address]Dr. Yilan Alvarez pH (U) 6.0 [pH] Normal 5-9 [facility] Comment on above: Performed By: #### E RUR ####[facility] [address] [place] [id number]. Arnie Alvarez SPEC GRAVITY <=1.005 Abnormal 1.005-<=1.025 [facility] Comment on above: Performed By: #### E RUR ####[facility] [address] [place] [address]Dr. Arnie Alvarez UA PROTEIN Negative Normal NEGATIVE/ TRACE [facility] Comment on above: Performed By: #### E RUR ####[facility] [address] [place], [place] [address]Dr. Arnie Alvarez UR MICRO IND NOT INDICATED Normal [facility] Comment on above: Performed By: #### E RUR ####[facility] [address] [place] [address]Dr. Arnie Alvarez Urobilinogen Qn (U) 0.2 {Dasha'U}/dL Normal 0.2 - 1. 0 [facility] Comment on above: Performed By: #### E RUR ####[facility] [address] [place], [place] [address]DrSmitha Alvarez Vital Signs Date Time Vital Sign Value Performing Clinician Facility 06-11-2023 17:55-0500 Body height 185.42 cm Mar[facility] 06-11-2023 17:55-0500 Body mass index (BMI) [Ratio] 34.3 kg/m2 [facility] Call[facility] Other [facility] 06-11-2023 17:55-0500 Body temperature 98 [degF] Mar[facility] Call[facility] Other [facility] 06-11-2023 17:55-0500 Body weight 117.94 kg Marce Callahan Other [facility] 06-11-2023 17:55-0500 Respiratory rate 16 /min Marce Call[facility] Other [facility] 06-11-2023 17:55-0500 SaO2% (BldA) [Mass fraction] 99 % Marce Call[facility] Other [facility] Encounters Encounter Date Encounter Type Care Provider Facility Start: 06-11-2023 End: 06-11-2023 ambulatory Marce Callahan Other [facility] Start: 06-11-2023 Office outpatient ne w [...] Facility:[facility] Payers Date Payer Category Payer Unknown [id number] [id number] [id number] 1995 Unknown [id number] .16.84 [id number] 1995 Unknown [id number] .16.84 [id number] 1995 Unknown [id number] .16.84 [id number] 1995 Unknown [id number] .16.84 [id number] 1959 Unknown [id number] Social History Date Type Detail Facility Sex Assigned At [facility] Evaluation note 06-11-2023 Note Date & [...] understanding and is agreeable at this time [facility] Summary Purpose Family History No Family History Records Found Advance Directives No Advanced Directives Records Found Additional Source Comments (unrecognized sect ion and content) No Status Records Found INFORMATION SOURCE (unrecogn ized section and content) DATE CREATED AUTHOR 06/21/2021 [facility] REASON FOR VISIT (unrecogniz ed [...] BE BASED ON THE PRIMARY CLINICAL RECORDS. [facility]. provides no warranty or guarantee of the accuracy or completeness of information in this document.
== END 2024-11-18 17:37 | disposition home or self-care (01) ==
PROVIDERS: Emergency Provider Emergency Medicine; PCP Family Medicine
DX: J30.2 Other seasonal allergic rhinitis (principal); H91.91 Unspecified hearing loss, right ear
CPT/HCPCS: 99281

== ENCOUNTER 2025-02-09 15:53 | Emergency (ER) | payer OTHER, SELFPAY ==
--- OUTSIDE RECORDS SUMMARY | 2022-06-05 12:30 | XMS_ITS | Continuity of Care Document ---
Author Organization [facility] Address [address] [place] [address] Phone Care Team Providers Care Collection Manager Name Role Phone Wetzel DDSJamari Unavailable Unavail able Allergies, Adverse Reactions, Alerts Substance Reaction Status Criticality No Known Allergies Active No Inform ation Procedures Procedure Date Panoramic Film Extract; Erupted Th/exposted [address] Nutrit Couns For Control Of [place] Dis May Advance Directives Directive Yes / No Effective Date File Name No Information Encounters Encounter Description Practice Location Reason(s) For Visit Diagnoses Date Provider Providers Copied on Encounter [facility], [address] [place] [address], [id number], [place] tel:[phone] Dental Clinic Consult (chief complaint) Encounter for screening for dental disorders Wetzel DDEmmanuelle Kauffman. [address], [place], [id number], [place]. tel:[phone] Family History Family Member Type Diagnosis Age At Onset No Information Payers Payer name Insurance type Covered republican ID Rachael lott(s) Marilee Rodriguez [facility] [address] [facility] [place] [id number] D Medicaid [facility] [id number] Social History Type Description Quantity Date Captured Comments Alcohol Use Details Unknown Caffeine Use Details Unknown Tobacco Use Status No Information Smoking Status No Information Sex Male Sexual Orientation Straight or heterosexual Gender Identity Male Vital Signs Date / Time: Height Weight BMI Pulse Rate Blood Pressure Temperature Respiratory Rate Body Surface Area Head Circumference Head Circ. Percentile Wt./Casey. Percentile BMI percentile Pulse Ox Inhaled Ox 6:08 PM 84 /min 128/89 mm[Hg] 97.80 F Chief Complaint And Reason For Visit From encounter dated '06/05/2022 16:30'. Consult (chief complaint) Reason For Referral Reason For Referral No Information Plan Of Treatment Date Type Action Status Goal Depression screening. Due on due Goal Tdap. Due on due Goal PRAPARE ASSESSMENT. Due on J due Goal Influenza vaccine. Due on Ja n due Goal RLP. Due on due History Of Present Illness Encounter Date Complaint History Of Prese nt Illness Consult Functional Status Date Functional Assessmen t No Information Instructions Date Instruction Additional Infor mation No Information Assessments Type Assessment Date No Information Patient Care Teams Name Effective Dates (start - stop) Status Members No Information
[2025-02-09 15:58] VITALS: BP 164/90; PULSE 88; TEMP 36.9; O2SAT 100; BMI 33.4
[2025-02-09 17:19] LABS: Glucose Urine UA NEGATIVE (NEGATIVE)
--- OUTSIDE RECORDS SUMMARY | 2025-02-09 17:23 | XMS_ITS | Patient Health Record ---
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
[2025-02-09 17:35] LABS: Crystals Seen? None Seen #/HPF (None Seen)
[2025-02-09 17:36] LABS: Cast Seen? NONE SEEN #/LPF (NONE SEEN); Urine Culture Indicated NO
--- NOTE | 2025-02-09 18:03 | ED_ITS ---
HPI - Male Genitourinary General Chief complaint: Urogenital-Male Stated complaint: PAIN IN GROIN AREA Time Seen by Provider: 02/09/25 17:33 Source: patient Mode of arrival: walk-in History of Present Illness HPI Narrative: Patient presents to the ED for irritation at the tip of the penis. Symptoms started after vigorous masturbation on Saturday. He denies discharge, lesions, testicular pain, abdominal pain, or swelling. No recent sexual contact, and he is not concerned about STDs. He reports some burning with urination but no increased urinary frequency, urgency, or thirst. He expressed concern about possible diabetes due to the burning sensation. No fever, chills, nausea, or systemic symptoms. Related Data Allergies Allergy/AdvReac Type Severity Reaction Status Date / Time No Known Drug Allergies Allergy Verified 11/18/24 17:24 PFSH PFSH Social History Smoking status: Never smoker Little interest or pleasure in doing things: not at all Feeling down, depressed, or hopeless: not at all Exam Narrative Exam Narrative: * General: Alert, oriented, in no acute distress. * Cardiac/Respiratory: Heart and lung sounds normal. * Abdomen: Soft, non-tender, no rebound or guarding. * Genitourinary: Exam chaperoned by MAIDA Andrews. Penis without lesions, erythema, discharge, or tenderness. No swelling noted. Testicles non-tender and without masses. No inguinal lymphadenopathy. * Skin: No rash, ulceration, or signs of infection. Constitutional Vital Signs, click to edit/add: Last Vital Signs Temp 98.4 F 02/09/25 15:58 Pulse 88 02/09/25 15:58 Resp 18 02/09/25 15:58 BP 164/90 H 02/09/25 15:58 Pulse Ox 100 02/09/25 15:58 Course Vital Signs Vital signs: Vital Signs Temperature 98.4 F 02/09/25 15:58 Pulse Rate 88 02/09/25 15:58 Respiratory Rate 18 02/09/25 15:58 Blood Pressure 164/90 H 02/09/25 15:58 Pulse Oximetry 100 02/09/25 15:58 Temperature 98.4 F 02/09/25 15:58 Pulse Rate 88 02/09/25 15:58 Respiratory Rate 18 02/09/25 15:58 Blood Pressure 164/90 H 02/09/25 15:58 Pulse Oximetry 100 02/09/25 15:58 MDM - Male Genitourinary MDM Narrative Medical decision making narrative: Urinalysis was completely normal with no evidence of infection and no glucosuria. Given the history of onset after vigorous masturbation, symptoms are most consistent with local friction irritation. There are no exam findings suggestive of STI, balanitis, or urinary tract infection. Discussed with the patient that there is no glucose in the urine, but for a complete diabetes workup, he should follow up with his primary care provider for fasting blood sugar or HbA1c testing. Provided reassurance and conservative management recommendations. Patient was advised to keep the area clean and dry, avoid friction until fully healed, and monitor for new symptoms such as discharge, lesions, swelling, fever, or worsening pain. Patient is stable and safe for discharge and agreeable to plan. Differential Diagnosis Differential diagnosis: Likely urinary tract infection, urethritis, epididymitis and genital herpes simplex Medical Records Attestation: I reviewed the patient's medical records. Lab Data Attestation: I reviewed the patient's lab results. Labs: Lab Results 02/09/25 Range/Units 16:04 Urine Color Lt. yellow (YELLOW) Urine Clarity Clear (CLEAR) Urine pH 7.0 (5.0-9.0) Ur Specific [place] <=1.005 A (1.005-1.025) Urine Protein Negative (NEG/TRACE) mg/dL Urine Glucose (UA) Negative (NEGATIVE) mg/dL Urine Ketones Negative (NEGATIVE) mg/dL Urine Occult Blood Negative (NEGATIVE) Urine Nitrite Negative (NEGATIVE) Urine Bilirubin Negative (NEGATIVE) Urine Urobilinogen 0.2 (0.2-1.0) EU/dL Ur Leukocyte Esterase Negative (NEGATIVE) Urine RBC None seen (0-2) #/HPF Urine WBC None seen (NONE SEEN) #/HPF Ur Squamous Epith Cells Rare (NONE/RARE) #/LPF Urine Crystals None seen (None Seen) #/HPF Urine Bacteria None seen (NONE SEEN) #/HPF Urine Casts None seen (NONE SEEN) #/LPF Urine Mucus None seen (NONE SEEN) Ur Culture Indicated? No Discharge Plan Discharge Chief Complaint: Urogenital-Male Clinical Impression: Skin irritation, Dysuria Patient Disposition: Home, Self-Care Time of Disposition Decision: 18:04 Condition: Good Print Language: Slovenian Instructions: Dysuria (ED) Additional Instructions: Reason for Visit: You were seen today for irritation and discomfort in the urethra/penis. Based on your symptoms and exam, this appears to be caused by friction or mild irritation, not an infection. What to Do at Home: * Rest the area: Avoid activities that caused irritation (sexual activity, vigorous exercise, tight clothing) until symptoms improve. * Keep area clean and dry: Gently wash with mild soap and water once daily, then pat dry. * Comfort measures: * You may apply a small amount of plain, unscented moisturizer or water-based lubricant to reduce friction. * Wear loose-fitting, breathable cotton underwear. * Hydration: Drink plenty of water to keep urine diluted, which can make urina tion less irritating. Medications: * You may use acetaminophen or ibuprofen for discomfort if needed, unless told otherwise by your doctor. L When to Call Your Doctor or Return to the ER: * Burning or pain with urination that worsens * Penile discharge, sores, or rash * Blood in the urine or semen * Fever, chills, or feeling very unwell * Persistent pain or swelling that does not improve within a few days Follow-Up: If symptoms do not improve in 3?5 days, follow up with your primary care provider or a urologist for further evaluation. Referrals: Santo Ragsdale MD [Primary Care Provider, [facility]] - 1 week Discharge Date/Time: 02/09/25 18:13
== END 2025-02-09 18:13 | disposition home or self-care (01) ==
PROVIDERS: Emergency Provider Emergency Medicine; PCP Family Medicine
DX: N48.89 Other specified disorders of penis (principal); R30.0 Dysuria
CPT/HCPCS: 81001; 99283